=== PATIENT | male | born 1970 | race African-American/Black ===

== ENCOUNTER 2017-06-02 10:39 | Inpatient (IN) ==
[2017-06-02] MEDS ORDERED: SODIUM CHLORIDE 0.9% 1,000 ML IV STA (11:11)
[2017-06-02 11:43] LABS: Basophils # 0.1 10*3/uL (0.0-0.2); Basophils % 0.5 % (0.0-0.8); Eosinophils # 0.2 10*3/uL (0.0-0.87); Hematocrit 26.1 VOL% (42.0-52.0); Hemoglobin 8.4 GM/DL (14.0-18.0); Immature Granulocytes % 0.4 %; Immature Granulocytes Absolute 0.05 #; Lymphocytes % 17.2 % (21.2-54.2); Mean Corpuscular HGB Conc 32.2 GM/DL (32-36); Mean Corpuscular Hemoglobin 27 PG (27-34); Mean Corpuscular Volume 84.2 FL (87-102); Mean Platelet Volume 10.1 FL (9.6-12.0); Monocytes # 1.4 10*3/uL (0.11-0.8); Monocytes % 12.2 % (1.7-12.7); Neutrophils # 7.9 10*3/uL (1.4-7.4); Neutrophils % 67.7 % (38.7-73.9); Platelet Count 377 T/CUMM (130-400); Red Cell Distribution Width 13.6 % (9.3-17.3); White Blood Count 11.6 T/CUMM (4-12)
[2017-06-02 11:56] LABS: PT Patient Result 10.9 SECS
[2017-06-02 12:09] LABS: Alanine Aminotransferase 12 U/L (16-61); Albumin 1.8 G/DL (3.4-5.0); Alkaline Phosphatase 102 U/L (45-117); Aspartate Amino Transferase 12 U/L (0-37); Bilirubin,Total < 0.39 MG/DL (0.2-1.0); Blood Urea Nitrogen 21 MG/DL (7-18); Calcium 8.5 MG/DL (8.5-10.1); Glucose 50 MG/DL (74-106); Osmolality,Calculated 278.4 MOS/KG (273-304); Potassium 4.8 MMOL/L (3.5-5.1); Sodium 140 MMOL/L (136-145); Total Protein 8.6 G/DL (6.4-8.3)
[2017-06-02 12:32] LABS: Apearance,Urine CLEAR (Clear); Bacteria,Urine Occasional /HPF (Few); Bilirubin,Urine Negative (Negative); Blood, Urine Small mg/dL (Negative); Glucose,Urine (UA) Negative (Negative); Ketones,Urine Negative (Negative); Mucus,Urine Occasional /LPF (Occasional); Nitrite,Urine Negative (Negative); Protein,Urine Negative; RBC,Urine <1 /HPF (0-4); Squamous Epithelial Cell,Urine Occasional /HPF (0-10); Urine Color Straw (Yellow); Urine Specific Gravity 1.006 (1.001-1.035); Urine Urobilinogen < 2.0 EU/DL (0.2-1.0); WBC,Urine 1 /HPF (0-6)
[2017-06-02] MEDS ORDERED: DEXTROSE 50% 25 GM/50 ML SYRINGE IV ONE (14:39)
[2017-06-02] MEDS ORDERED: DEXTROSE 5% NACL 0.45% 1,000 ML IV SCH (15:00)
[2017-06-02] MEDS ORDERED: DEXTROSE 50% 25 GM/50 ML VIAL IV STA (15:42)
[2017-06-02] MEDS ORDERED: VANCOMYCIN INJ 1,000 MG in SODIUM CHLORIDE 0.9% 250 ML IV ONE (16:00)
[2017-06-02 16:23] LABS: Barbiturates Screen,Urine Negative (Negative); Benzodiazepines Screen,Urine Negative (Negative); Cannabinoid Screen,Urine Negative (Negative); Opiate Screen,Urine Negative (Negative); Phencyclidine Screen,Urine Negative (Negative)
[2017-06-02] MEDS ORDERED: ONDANSETRON 4 MG/2 ML VIAL IV PRN (16:52)
[2017-06-02] MEDS ORDERED: GLUCAGON 1 MG VIAL IM PRN (16:52)
[2017-06-02] MEDS ORDERED: ACETAMINOPHEN 325 MG TABLET PO PRN (16:52)
[2017-06-02] MEDS: FUROSEMIDE 40 MG/4 ML VIAL IV SCH (18:09)
[2017-06-02 18:19] LABS: Free T4 (Free Thyroxine) 0.85 NG/DL (0.76-1.46); Thyroid Stimulating Hormone 1.22 uIU/ml (0.358-3.74); Total Protein 8.1 G/DL (6.4-8.3)
[2017-06-02 18:58] LABS: HIV Antigen/Antibody Result Nonreactive (Nonreactive)
[2017-06-02] MEDS: VANCOMYCIN INJ 1,250 MG in SODIUM CHLORIDE 0.45% 250 ML IV SCH (19:22)
[2017-06-02] MEDS ORDERED: ENOXAPARIN 40 MG/0.4 ML SYRINGE SUBCUT SCH (21:00)
[2017-06-02] MEDS: ALBUMIN 25% 25 GM in PREMIX 1 EACH IV SCH (21:04)
[2017-06-03] MEDS ORDERED: INSULIN REGULAR 100 UNIT/ML IV ONE ×2 (03:10→18:52)
[2017-06-03] MEDS: ALBUMIN 25% 25 GM in PREMIX 1 EACH IV SCH ×3 (03:35→20:18)
[2017-06-03 05:08] LABS: Alanine Aminotransferase 11 U/L (16-61); Albumin 1.9 G/DL (3.4-5.0); Alkaline Phosphatase 91 U/L (45-117); Aspartate Amino Transferase 8 U/L (0-37); Bilirubin,Total < 0.39 MG/DL (0.2-1.0); Blood Urea Nitrogen 23 MG/DL (7-18); Calcium 7.6 MG/DL (8.5-10.1); Glucose 429 MG/DL (74-106); Osmolality,Calculated 296.7 MOS/KG (273-304); Potassium 4.8 MMOL/L (3.5-5.1); Sodium 138 MMOL/L (136-145); Total Protein 7.1 G/DL (6.4-8.3)
[2017-06-03 06:24] LABS: Basophils % 0.5 % (0.0-0.8); Eosinophils # 0.5 10*3/uL (0.0-0.87); Immature Granulocytes % 0.5 %; Immature Granulocytes Absolute 0.04 #; Lymphocytes # 2.1 10*3/uL (1.4-4.0); Lymphocytes % 24.6 % (21.2-54.2); Mean Corpuscular HGB Conc 33.2 GM/DL (32-36); Mean Corpuscular Hemoglobin 28 PG (27-34); Mean Corpuscular Volume 83.9 FL (87-102); Mean Platelet Volume 10.5 FL (9.6-12.0); Monocytes # 1.1 10*3/uL (0.11-0.8); Monocytes % 12.9 % (1.7-12.7); Neutrophils # 4.8 10*3/uL (1.4-7.4); Neutrophils % 55.5 % (38.7-73.9); Platelet Count 267 T/CUMM (130-400); Red Cell Distribution Width 13.7 % (9.3-17.3); White Blood Count 8.6 T/CUMM (4-12)
[2017-06-03 06:28] LABS: Hematocrit 19.3 VOL% (42.0-52.0); Hemoglobin 6.4 GM/DL (14.0-18.0)
[2017-06-03] MEDS ORDERED: SODIUM CHLORIDE 0.9% 1,000 ML IV PRN (06:34)
[2017-06-03] MEDS: FUROSEMIDE 40 MG/4 ML VIAL IV SCH ×2 (08:06→16:43)
[2017-06-03] MEDS: PANTOPRAZOLE 40 MG TABLET PO SCH (08:08)
[2017-06-03] MEDS: VANCOMYCIN INJ 1,250 MG in SODIUM CHLORIDE 0.45% 250 ML IV SCH ×2 (09:58→16:43)
[2017-06-03] MEDS ORDERED: cefTRIAXone 2,000 MG VIAL IV SCH (15:30)
[2017-06-03] MEDS: INSULIN GLARGINE 100 UNIT/ML SUBCUT SCH (16:42)
[2017-06-03] MEDS: amLODIPine 10 MG TABLET PO SCH (16:42)
[2017-06-03] MEDS: cefTRIAXone 2,000 MG in SYRINGE 1 EACH IV SCH (16:43)
[2017-06-03] MEDS: SODIUM CHLORIDE 0.9% 1,000 ML IV SCH (19:47)
[2017-06-03] MEDS: CARVEDILOL 6.25 MG TABLET PO SCH (20:25)
[2017-06-04 00:42] LABS: Hematocrit 23.7 VOL% (42.0-52.0)
[2017-06-04 00:45] LABS: Hemoglobin 7.9 GM/DL (14.0-18.0)
[2017-06-04] MEDS: SODIUM CHLORIDE 0.9% 1,000 ML IV SCH ×2 (04:13→17:47)
[2017-06-04] MEDS: ALBUMIN 25% 25 GM in PREMIX 1 EACH IV SCH (09:01)
[2017-06-04] MEDS: BISACODYL 5 MG TABLET PO SCH ×4 (09:02→15:49)
[2017-06-04] MEDS: FUROSEMIDE 40 MG/4 ML VIAL IV SCH (09:02)
[2017-06-04] MEDS: INSULIN GLARGINE 100 UNIT/ML SUBCUT SCH (09:03)
[2017-06-04 09:23] LABS: Hematocrit 29.6 VOL% (42.0-52.0); Hemoglobin 10.2 GM/DL (14.0-18.0)
[2017-06-04 09:24] LABS: Basophils # 0.1 10*3/uL (0.0-0.2); Basophils % 0.7 % (0.0-0.8); Eosinophils # 0.6 10*3/uL (0.0-0.87); Eosinophils % 7.5 % (0.00-10.9); Hematocrit 29.8 VOL% (42.0-52.0); Hemoglobin 9.9 GM/DL (14.0-18.0); Immature Granulocytes % 0.4 %; Immature Granulocytes Absolute 0.03 #; Lymphocytes # 2.5 10*3/uL (1.4-4.0); Lymphocytes % 29.5 % (21.2-54.2); Mean Corpuscular HGB Conc 33.2 GM/DL (32-36); Mean Corpuscular Hemoglobin 27 PG (27-34); Mean Corpuscular Volume 81.9 FL (87-102); Mean Platelet Volume 9.9 FL (9.6-12.0); Monocytes % 12.2 % (1.7-12.7); Neutrophils # 4.3 10*3/uL (1.4-7.4); Neutrophils % 49.7 % (38.7-73.9); Platelet Count 309 T/CUMM (130-400); Red Blood Count 3.64 MC/CUMM (3.8-5.5); Red Cell Distribution Width 14.2 % (9.3-17.3); White Blood Count 8.6 T/CUMM (4-12)
[2017-06-04 09:59] LABS: Albumin 2.7 G/DL (3.4-5.0); Bilirubin,Total 0.6 MG/DL (0.2-1.0); Calcium 8.4 MG/DL (8.5-10.1); Osmolality,Calculated 280.4 MOS/KG (273-304); Potassium 4.3 MMOL/L (3.5-5.1); Total Protein 8.3 G/DL (6.4-8.3)
[2017-06-04] MEDS: VANCOMYCIN INJ 1,250 MG in SODIUM CHLORIDE 0.45% 250 ML IV SCH ×2 (10:00→21:48)
[2017-06-04 10:10] LABS: % Iron Saturation 23.3 % (18-50)
[2017-06-04 10:21] LABS: Folate 3.5 NG/ML (5.4-24.0)
[2017-06-04] MEDS: CARVEDILOL 6.25 MG TABLET PO SCH (11:48)
[2017-06-04] MEDS: amLODIPine 10 MG TABLET PO SCH (11:48)
[2017-06-04] MEDS: PANTOPRAZOLE 40 MG TABLET PO SCH (11:49)
[2017-06-04] MEDS ORDERED: INSULIN GLARGINE 100 UNIT/ML SUBCUT SCH (13:47)
[2017-06-04] MEDS ORDERED: CYANOCOBALAMIN 1000 MCG/1 ML VIAL SUBCUT SCH (14:00)
[2017-06-04] MEDS: cefTRIAXone 2,000 MG in SYRINGE 1 EACH IV SCH (15:48)
[2017-06-04] MEDS ORDERED: POLYETHYLENE GLYCOL POWDER 255 GM BOTTLE PO ONE (18:00)
[2017-06-04 20:41] LABS: Hemoglobin 10.2 GM/DL (14.0-18.0)
[2017-06-04] MEDS ORDERED: MAGNESIUM CITRATE 300 ML BOTTLE PO ONE (21:00)
[2017-06-04] MEDS: FOLIC ACID 1 MG TABLET PO SCH (21:47)
[2017-06-04] MEDS: CARVEDILOL 25 MG TABLET PO SCH (21:47)
[2017-06-04] MEDS: DEXTROSE 50% 25 GM/50 ML VIAL IV PRN (23:04)
[2017-06-05] MEDS: BISACODYL 5 MG TABLET PO SCH (00:10)
[2017-06-05] MEDS: DEXTROSE 50% 25 GM/50 ML VIAL IV PRN ×2 (01:29→03:49)
[2017-06-05] MEDS ORDERED: DEXTROSE 10% 1,000 ML IV SCH (02:30)
[2017-06-05] MEDS ORDERED: DEXTROSE 10% 500 ML IV SCH (03:30)
[2017-06-05 04:06] LABS: Basophils # 0.1 10*3/uL (0.0-0.2); Basophils % 0.7 % (0.0-0.8); Eosinophils # 0.5 10*3/uL (0.0-0.87); Eosinophils % 6.4 % (0.00-10.9); Hematocrit 30.4 VOL% (42.0-52.0); Hemoglobin 10.3 GM/DL (14.0-18.0); Immature Granulocytes % 0.4 %; Immature Granulocytes Absolute 0.03 #; Lymphocytes # 2.1 10*3/uL (1.4-4.0); Lymphocytes % 25.8 % (21.2-54.2); Mean Corpuscular HGB Conc 33.9 GM/DL (32-36); Mean Corpuscular Hemoglobin 28 PG (27-34); Mean Corpuscular Volume 81.7 FL (87-102); Mean Platelet Volume 9.5 FL (9.6-12.0); Monocytes % 12.1 % (1.7-12.7); Neutrophils # 4.5 10*3/uL (1.4-7.4); Neutrophils % 54.6 % (38.7-73.9); Platelet Count 302 T/CUMM (130-400); Red Blood Count 3.72 MC/CUMM (3.8-5.5); White Blood Count 8.3 T/CUMM (4-12)
[2017-06-05 04:35] LABS: Albumin 2.5 G/DL (3.4-5.0); Bilirubin,Total 0.9 MG/DL (0.2-1.0); Calcium 8.5 MG/DL (8.5-10.1); Osmolality,Calculated 273.5 MOS/KG (273-304); Potassium 3.8 MMOL/L (3.5-5.1); Total Protein 8.3 G/DL (6.4-8.3)
[2017-06-05] MEDS ORDERED: PHENYLEPHRINE 1 MG/10 ML SYRINGE IV ONE (07:32)
[2017-06-05] MEDS ORDERED: LIDOCAINE 1% 5 ML VIAL ONE (07:32)
[2017-06-05] MEDS ORDERED: PROPOFOL 200 MG/20 ML VIAL IV ONE (07:32)
[2017-06-05 07:51] LABS: Albumin (SPE) Rel % 26.1 %; Alpha 1 (SPE) 0.4 G/DL (0.1-0.4); Alpha 2 (SPE) Rel % 13.1 %; Beta (SPE) 1.3 G/DL (0.5-1.1); Total Protein (Chem) 8.1 G/DL (6.4-8.3)
[2017-06-05 07:52] LABS: Beta (SPE) Rel % 15.6 %; Gamma (SPE) 3.3 G/DL (0.7-1.7); Gamma (SPE) Rel % 40.2 %
[2017-06-05 07:56] LABS: Albumin (SPE) 2.1 G/DL (3.2-5.3)
[2017-06-05] MEDS: CARVEDILOL 25 MG TABLET PO SCH ×3 (08:30→21:55)
[2017-06-05] MEDS: FOLIC ACID 1 MG TABLET PO SCH ×3 (08:31→21:55)
[2017-06-05] MEDS: FUROSEMIDE 40 MG/4 ML VIAL IV SCH ×2 (08:32→09:23)
[2017-06-05] MEDS: amLODIPine 10 MG TABLET PO SCH ×2 (08:33→09:22)
[2017-06-05] MEDS: PANTOPRAZOLE 40 MG TABLET PO SCH ×2 (08:33→09:22)
[2017-06-05] MEDS: VANCOMYCIN INJ 1,250 MG in SODIUM CHLORIDE 0.45% 250 ML IV SCH (08:33)
[2017-06-05 09:16] LABS: Hematocrit 29.4 VOL% (42.0-52.0); Hemoglobin 9.9 GM/DL (14.0-18.0)
[2017-06-05] MEDS: cefTRIAXone 2,000 MG in SYRINGE 1 EACH IV SCH (16:44)
[2017-06-05] MEDS: INSULIN LISPRO 100 UNIT/ML SUBCUT SCH (18:23)
[2017-06-05 19:55] LABS: Hematocrit 31.6 VOL% (42.0-52.0); Hemoglobin 10.6 GM/DL (14.0-18.0)
[2017-06-06 05:25] LABS: Basophils % 0.4 % (0.0-0.8); Eosinophils # 0.5 10*3/uL (0.0-0.87); Eosinophils % 5.5 % (0.00-10.9); Hematocrit 28.3 VOL% (42.0-52.0); Hemoglobin 9.3 GM/DL (14.0-18.0); Immature Granulocytes % 0.3 %; Immature Granulocytes Absolute 0.03 #; Lymphocytes # 2.4 10*3/uL (1.4-4.0); Lymphocytes % 26.7 % (21.2-54.2); Mean Corpuscular HGB Conc 32.9 GM/DL (32-36); Mean Corpuscular Hemoglobin 27 PG (27-34); Mean Corpuscular Volume 82.3 FL (87-102); Mean Platelet Volume 9.6 FL (9.6-12.0); Monocytes # 1.1 10*3/uL (0.11-0.8); Monocytes % 11.6 % (1.7-12.7); Neutrophils % 55.5 % (38.7-73.9); Platelet Count 283 T/CUMM (130-400); Red Blood Count 3.44 MC/CUMM (3.8-5.5); Red Cell Distribution Width 14.1 % (9.3-17.3); White Blood Count 9.1 T/CUMM (4-12)
[2017-06-06 05:58] LABS: Albumin 2.2 G/DL (3.4-5.0); Bilirubin,Total 0.4 MG/DL (0.2-1.0); Calcium 8.3 MG/DL (8.5-10.1); Osmolality,Calculated 285.1 MOS/KG (273-304); Potassium 4.3 MMOL/L (3.5-5.1); Total Protein 7.4 G/DL (6.4-8.3)
[2017-06-06 06:47] LABS: Immuno Free Light Chain Kappa 25.61 MG/DL (0.33-1.94); Immuno Free Light Chain Lambda 10.01 MG/DL (0.57-2.63); Immuno Free Light Chain Ratio 2.56 MG/DL (0.26-1.65)
[2017-06-06] MEDS: INSULIN LISPRO 100 UNIT/ML SUBCUT SCH ×2 (08:18→16:53)
[2017-06-06] MEDS: amLODIPine 10 MG TABLET PO SCH (09:53)
[2017-06-06] MEDS: FUROSEMIDE 40 MG/4 ML VIAL IV SCH (09:53)
[2017-06-06] MEDS: CARVEDILOL 25 MG TABLET PO SCH ×2 (09:53→21:02)
[2017-06-06] MEDS: PANTOPRAZOLE 40 MG TABLET PO SCH (09:53)
[2017-06-06] MEDS: FOLIC ACID 1 MG TABLET PO SCH ×2 (09:53→21:02)
[2017-06-06] MEDS: cefTRIAXone 2,000 MG in SYRINGE 1 EACH IV SCH (15:07)
[2017-06-06] MEDS ORDERED: VANCOMYCIN INJ 1,250 MG in SODIUM CHLORIDE 0.45% 250 ML IV ONE (21:00)
[2017-06-07 06:24] LABS: Basophils # 0.1 10*3/uL (0.0-0.2); Basophils % 0.7 % (0.0-0.8); Eosinophils # 0.6 10*3/uL (0.0-0.87); Eosinophils % 7.2 % (0.00-10.9); Hematocrit 29.7 VOL% (42.0-52.0); Hemoglobin 9.8 GM/DL (14.0-18.0); Immature Granulocytes % 0.4 %; Immature Granulocytes Absolute 0.03 #; Lymphocytes # 2.5 10*3/uL (1.4-4.0); Lymphocytes % 29.7 % (21.2-54.2); Mean Corpuscular Hemoglobin 28 PG (27-34); Mean Corpuscular Volume 83.4 FL (87-102); Mean Platelet Volume 9.6 FL (9.6-12.0); Monocytes % 11.9 % (1.7-12.7); Neutrophils # 4.2 10*3/uL (1.4-7.4); Neutrophils % 50.1 % (38.7-73.9); Platelet Count 258 T/CUMM (130-400); Red Blood Count 3.56 MC/CUMM (3.8-5.5); Red Cell Distribution Width 13.8 % (9.3-17.3); White Blood Count 8.4 T/CUMM (4-12)
[2017-06-07] MEDS: PANTOPRAZOLE 40 MG TABLET PO SCH (09:36)
[2017-06-07] MEDS: amLODIPine 10 MG TABLET PO SCH (09:36)
[2017-06-07] MEDS: CARVEDILOL 25 MG TABLET PO SCH (09:36)
[2017-06-07] MEDS: FOLIC ACID 1 MG TABLET PO SCH (09:36)
[2017-06-07] MEDS: INSULIN LISPRO 100 UNIT/ML SUBCUT SCH (09:37)
[2017-06-07] MEDS: FUROSEMIDE 40 MG/4 ML VIAL IV SCH (09:37)
[2017-06-07 13:09] VITALS: BP 129/79
[2017-06-08 08:53] LABS: Hemoglobin A1 (Alkaline) 87.7 % (96.5-98.5); Hemoglobin A2 (Alkaline) 2.3 % (1.5-3.5)
== END 2017-06-07 16:00 | DRG 637 ==
LOC: EDBD → N.ED 10:39 → N.EDINP 14:34 → SUATTDRO 14:34 → N.5E 16:30
PROVIDERS: ADMIT Internal Medicine; ATTEND Internal Medicine
PROC: COLONBX (2017-06-05 07:35)

== ENCOUNTER 2019-12-27 20:39 | Inpatient (IN) ==
[2019-12-27] MEDS ORDERED: ONDANSETRON 4 MG/2 ML VIAL IV STA (21:20)
[2019-12-27] MEDS ORDERED: KETOROLAC 30 MG/1 ML VIAL IV STA (21:20)
[2019-12-27] MEDS ORDERED: SODIUM CHLORIDE 0.9% 1,000 ML IV STA ×3 (21:20→23:57)
[2019-12-27 22:17] LABS: Basophils # 0.1 10*3/uL (0.0-0.2); Basophils % 0.3 % (0.0-0.8); Eosinophils # 0.1 10*3/uL (0.0-0.87); Eosinophils % 0.2 % (0.00-10.9); Hematocrit 32.4 VOL% (42.0-52.0); Hemoglobin 9.7 GM/DL (14.0-18.0); Immature Granulocytes % 2.3 %; Immature Granulocytes Absolute 0.51 #; Lymphocytes # 3.2 10*3/uL (1.4-4.0); Lymphocytes % 14.6 % (21.2-54.2); Mean Corpuscular HGB Conc 29.9 GM/DL (32-36); Mean Corpuscular Volume 93.6 FL (87-102); Mean Platelet Volume 11.8 FL (9.6-12.0); Neutrophils % 73.6 % (38.7-73.9); Platelet Count 201 T/CUMM (130-400); Red Blood Count 3.46 MC/CUMM (3.8-5.5); White Blood Count 22.1 T/CUMM (4-12)
[2019-12-27 23:01] LABS: Band Neutrophils 1 % (0-10); Lymphocytes 15 % (20-55); Platelet Estimate Normal; Segmented Neutrophils 77 % (50-85); Total Cells Counted 100
[2019-12-27 23:03] LABS: Hypochromasia Slight; Microcytosis Slight; Polychromasia Slight
[2019-12-27 23:18] LABS: Albumin 3.7 G/DL (3.4-5.0); Calcium 8.7 MG/DL (8.5-10.1); Osmolality,Calculated 329.5 MOS/KG (273-304)
[2019-12-27] MEDS ORDERED: INSULIN REGULAR 100 UNIT/ML IV STA (23:22)
[2019-12-27 23:41] LABS: ABG Base Excess -27.2 MMOL/L (-2.5-2.5); ABG HCO3 2.5 MMOL/L (20-26); ABG Oxygen Saturation 97.9 % (95-100); ABG TCO2 2.9 MMOL/L (23-27)
[2019-12-27 23:45] LABS: ABG PCO2 11.1 MM HG (35-48); ABG PH 6.973 (7.35-7.45)
[2019-12-27] MEDS ORDERED: INSULIN REGULAR DRIP 100 ML IV PRN (23:54)
[2019-12-27] MEDS ORDERED: SODIUM BICARBONATE 50 MEQ/50 ML VIAL IV STA (23:57)
[2019-12-28 00:45] LABS: Apearance,Urine Slightly Hazy (Clear); Bilirubin,Urine Negative (Negative); Blood, Urine Moderate mg/dL (Negative); Glucose,Urine (UA) >=500 mg/dL (Negative); Ketones,Urine 5 mg/dL (Negative); Mucus,Urine Occasional /LPF (Occasional); Nitrite,Urine Negative (Negative); Protein,Urine Negative; RBC,Urine 8 /HPF (0-4); Squamous Epithelial Cell,Urine Occasional /HPF (0-10); Urine Color Yellow (Yellow); Urine Specific Gravity 1.015 (1.001-1.035); Urine Urobilinogen < 2.0 EU/DL (0.2-1.0); WBC,Urine 4 /HPF (0-6)
[2019-12-28] MEDS ORDERED: GLUCAGON 1 MG VIAL IM PRN ×3 (00:51→15:30)
[2019-12-28] MEDS ORDERED: DEXTROSE 50% 25 GM/50 ML SYRINGE IV PRN (00:51)
[2019-12-28 00:53] LABS: Barbiturates Screen,Urine Negative (Negative); Benzodiazepines Screen,Urine Negative (Negative); Cannabinoid Screen,Urine Negative (Negative); Opiate Screen,Urine Negative (Negative); Phencyclidine Screen,Urine Negative (Negative)
[2019-12-28] MEDS ORDERED: SODIUM PHOSPHATE IV PRN (00:53)
[2019-12-28] MEDS ORDERED: POTASSIUM CHLORIDE RIDER 10 MEQ in PREMIX 1 EACH IV PRN (00:53)
[2019-12-28] MEDS ORDERED: MAGNESIUM SULF RIDER 2 GM in PREMIX 1 EACH IV PRN (00:53)
[2019-12-28] MEDS ORDERED: SODIUM BICARB INJ 100 MEQ in STERILE WATER INJ 400 ML IV PRN (00:53)
[2019-12-28] MEDS ORDERED: MAGNESIUM SULF RIDER 4 GM in PREMIX 1 EACH IV PRN (00:53)
[2019-12-28] MEDS ORDERED: SODIUM CHLORIDE 0.9% IV PRN (00:53)
[2019-12-28] MEDS: INSULIN REGULAR DRIP 100 ML IV SCH ×2 (00:55→10:21)
[2019-12-28] MEDS ORDERED: SODIUM CHLORIDE 0.9% 1,000 ML IV STA (00:56)
[2019-12-28] MEDS ORDERED: INSULIN REGULAR DRIP 100 ML IV SCH (01:00)
[2019-12-28] MEDS ORDERED: SODIUM CHLORIDE 0.9% 1,000 ML IV SCH (02:00)
[2019-12-28 02:13] LABS: ABG Base Excess -24.2 MMOL/L (-2.5-2.5); ABG HCO3 7.8 MMOL/L (20-26); ABG Oxygen Saturation 98.1 % (95-100); ABG PCO2 23.3 MM HG (35-48); ABG TCO2 5.8 MMOL/L (23-27)
[2019-12-28 02:19] LABS: ABG PH 7.026 (7.35-7.45)
[2019-12-28 02:27] LABS: Calcium 7.4 MG/DL (8.5-10.1); Osmolality,Calculated 320.8 MOS/KG (273-304)
[2019-12-28 03:25] LABS: Calcium 7.7 MG/DL (8.5-10.1); Osmolality,Calculated 323.4 MOS/KG (273-304)
[2019-12-28 04:14] LABS: Basophils % 0.2 % (0.0-0.8); Eosinophils # 0.1 10*3/uL (0.0-0.87); Eosinophils % 0.5 % (0.00-10.9); Hematocrit 27.2 VOL% (42.0-52.0); Hemoglobin 8.7 GM/DL (14.0-18.0); Immature Granulocytes % 4.2 %; Immature Granulocytes Absolute 0.98 #; Lymphocytes # 4.2 10*3/uL (1.4-4.0); Lymphocytes % 18.3 % (21.2-54.2); Mean Corpuscular Volume 86.9 FL (87-102); Mean Platelet Volume 11.5 FL (9.6-12.0); Monocytes % 10.1 % (1.7-12.7); Neutrophils % 66.7 % (38.7-73.9); Platelet Count 157 T/CUMM (130-400); Red Blood Count 3.13 MC/CUMM (3.8-5.5); Red Cell Distribution Width 12.9 % (9.3-17.3); White Blood Count 23.2 T/CUMM (4-12)
[2019-12-28 04:17] LABS: ABG Base Excess -19.1 MMOL/L (-2.5-2.5); ABG HCO3 10.2 MMOL/L (20-26); ABG Oxygen Saturation 98.5 % (95-100); ABG PCO2 22.8 MM HG (35-48); ABG TCO2 7.9 MMOL/L (23-27)
[2019-12-28 04:19] LABS: ABG PH 7.169 (7.35-7.45)
[2019-12-28 05:11] LABS: Band Neutrophils 1 % (0-10); Lymphocytes 19 % (20-55); Platelet Estimate Normal; Segmented Neutrophils 75 % (50-85); Total Cells Counted 100
[2019-12-28 05:12] LABS: Hypochromasia 1+; Microcytosis 2+
[2019-12-28 06:11] LABS: ABG Base Excess -15.6 MMOL/L (-2.5-2.5); ABG HCO3 10.5 MMOL/L (20-26); ABG Oxygen Saturation 97.3 % (95-100); ABG PCO2 25.6 MM HG (35-48); ABG PH 7.231 (7.35-7.45); ABG PO2 107.7 MM HG (80-95); ABG TCO2 11.3 MMOL/L (23-27)
[2019-12-28] MEDS ORDERED: SODIUM CHLORIDE 0.45% 1,000 ML IV SCH (06:15)
[2019-12-28 06:22] LABS: Calcium 7.6 MG/DL (8.5-10.1); Osmolality,Calculated 311.4 MOS/KG (273-304)
[2019-12-28] MEDS: ONDANSETRON 4 MG/2 ML VIAL IV PRN ×2 (08:12→17:20)
[2019-12-28 09:54] LABS: Calcium 7.7 MG/DL (8.5-10.1); Osmolality,Calculated 304.3 MOS/KG (273-304)
[2019-12-28] MEDS: PANTOPRAZOLE 40 MG TABLET PO SCH (10:23)
[2019-12-28] MEDS: ENOXAPARIN 30 MG/0.3 ML SYRINGE SUBCUT SCH (10:24)
[2019-12-28] MEDS: SODIUM CHLORIDE 0.45% 1,000 ML IV SCH ×2 (10:45→15:57)
[2019-12-28] MEDS: SODIUM CHLOR 0.45% KCL 20 MEQ 20 MEQ/1,000 ML BAG IV SCH ×2 (10:53→15:15)
[2019-12-28] MEDS: DEXT 5% NACL 0.45% KCL 20 MEQ 20 MEQ/1,000 ML BAG IV SCH ×2 (11:18→15:15)
[2019-12-28] MEDS ORDERED: INSULIN GLARGINE 100 UNIT/ML SUBCUT SCH (13:16)
[2019-12-28] MEDS ORDERED: DEXTROSE 10% 250 ML BAG IV PRN (15:30)
[2019-12-28] MEDS: INSULIN REGULAR 100 UNIT/ML SUBCUT SCH ×2 (15:43→21:59)
[2019-12-28] MEDS: GABAPENTIN 300 MG CAPSULE PO SCH (15:57)
[2019-12-28] MEDS: DEXTROSE 10% 250 ML BAG IV PRN (17:12)
[2019-12-28] MEDS ORDERED: INSULIN REGULAR 100 UNIT/ML SUBCUT SCH (18:00)
[2019-12-28] MEDS: MEGESTROL 40 MG TABLET PO SCH (22:09)
[2019-12-29] MEDS: DEXTROSE 10% 250 ML BAG IV PRN (00:19)
[2019-12-29] MEDS: INSULIN REGULAR 100 UNIT/ML SUBCUT SCH ×6 (00:22→21:51)
[2019-12-29] MEDS: SODIUM CHLORIDE 0.45% 1,000 ML IV SCH (00:22)
[2019-12-29] MEDS: DEXTROSE 5% NACL 0.45% 1,000 ML IV SCH ×2 (04:22→12:52)
[2019-12-29] MEDS: INSULIN GLARGINE 100 UNIT/ML SUBCUT SCH ×2 (06:06→10:20)
[2019-12-29 06:10] LABS: Basophils % 0.2 % (0.0-0.8); Eosinophils # 0.1 10*3/uL (0.0-0.87); Eosinophils % 0.7 % (0.00-10.9); Hematocrit 25.4 VOL% (42.0-52.0); Hemoglobin 8.5 GM/DL (14.0-18.0); Immature Granulocytes % 0.7 %; Immature Granulocytes Absolute 0.09 #; Lymphocytes # 1.5 10*3/uL (1.4-4.0); Lymphocytes % 12.2 % (21.2-54.2); Mean Corpuscular HGB Conc 33.5 GM/DL (32-36); Mean Corpuscular Volume 84.7 FL (87-102); Mean Platelet Volume 12.3 FL (9.6-12.0); Monocytes % 8.1 % (1.7-12.7); Neutrophils % 78.1 % (38.7-73.9); Platelet Count 120 T/CUMM (130-400); White Blood Count 12.4 T/CUMM (4-12)
[2019-12-29 06:30] LABS: Calcium 7.7 MG/DL (8.5-10.1); Osmolality,Calculated 291.3 MOS/KG (273-304)
[2019-12-29] MEDS: PANTOPRAZOLE 40 MG TABLET PO SCH (10:20)
[2019-12-29] MEDS: ENOXAPARIN 30 MG/0.3 ML SYRINGE SUBCUT SCH (10:20)
[2019-12-29] MEDS: MEGESTROL 40 MG TABLET PO SCH (10:20)
[2019-12-29] MEDS: GABAPENTIN 300 MG CAPSULE PO SCH (10:20)
[2019-12-29 12:11] LABS: Platelet Estimate Adequate
[2019-12-29] MEDS: ONDANSETRON 4 MG/2 ML VIAL IV SCH ×3 (13:02→21:47)
[2019-12-29] MEDS ORDERED: LEVOFLOXACIN INJ 500 MG in PREMIX 1 EACH IV SCH (15:00)
[2019-12-29] MEDS: PANTOPRAZOLE 40 MG VIAL IV SCH ×2 (15:19→21:49)
[2019-12-29] MEDS: DOCUSATE SODIUM 100 MG CAPSULE PO SCH ×2 (15:19→21:47)
[2019-12-29] MEDS: POLYETHYLENE GLYCOL POWDER 17 GM PACK PO SCH ×2 (15:25→21:51)
[2019-12-30] MEDS: INSULIN REGULAR 100 UNIT/ML SUBCUT SCH ×7 (00:19→23:51)
[2019-12-30] MEDS: DEXTROSE 5% NACL 0.45% 1,000 ML IV SCH ×3 (00:20→17:55)
[2019-12-30] MEDS: ONDANSETRON 4 MG/2 ML VIAL IV SCH ×6 (02:01→21:18)
[2019-12-30] MEDS: DEXTROSE 10% 250 ML BAG IV PRN ×4 (04:19→22:03)
[2019-12-30 06:12] LABS: Basophils % 0.1 % (0.0-0.8); Eosinophils # 0.1 10*3/uL (0.0-0.87); Eosinophils % 1.2 % (0.00-10.9); Hematocrit 24.1 VOL% (42.0-52.0); Hemoglobin 8.3 GM/DL (14.0-18.0); Immature Granulocytes % 0.6 %; Immature Granulocytes Absolute 0.06 #; Lymphocytes # 1.5 10*3/uL (1.4-4.0); Lymphocytes % 15.4 % (21.2-54.2); Mean Corpuscular HGB Conc 34.4 GM/DL (32-36); Mean Corpuscular Volume 83.1 FL (87-102); Mean Platelet Volume 11.5 FL (9.6-12.0); Monocytes % 9.6 % (1.7-12.7); Neutrophils % 73.1 % (38.7-73.9); Platelet Count 132 T/CUMM (130-400); Red Cell Distribution Width 13.5 % (9.3-17.3); White Blood Count 9.7 T/CUMM (4-12)
[2019-12-30 06:27] LABS: Calcium 7.6 MG/DL (8.5-10.1); Osmolality,Calculated 284.3 MOS/KG (273-304)
[2019-12-30 06:35] LABS: Hypochromasia 1+; Microcytosis Slight; Ovalocytes Slight; Platelet Estimate Normal
[2019-12-30 06:42] LABS: Folate 5.8 NG/ML (5.4-24.0); Vitamin B12 545 PG/ML (211-911)
[2019-12-30 06:49] LABS: Parathyroid Hormone Intact 107.8 PG/ML (18.4-80.1)
[2019-12-30 07:13] LABS: Sedimentation Rate-Westergren 60 MM/HR (0-20)
[2019-12-30] MEDS: ENOXAPARIN 30 MG/0.3 ML SYRINGE SUBCUT SCH (08:56)
[2019-12-30] MEDS: DOCUSATE SODIUM 100 MG CAPSULE PO SCH ×2 (08:56→21:18)
[2019-12-30] MEDS: GABAPENTIN 300 MG CAPSULE PO SCH (08:56)
[2019-12-30] MEDS: POLYETHYLENE GLYCOL POWDER 17 GM PACK PO SCH ×2 (08:56→21:18)
[2019-12-30] MEDS ORDERED: INSULIN GLARGINE 100 UNIT/ML SUBCUT SCH ×2 (09:00)
[2019-12-30] MEDS: PANTOPRAZOLE 40 MG VIAL IV SCH ×2 (09:00→21:19)
[2019-12-30] MEDS: CHOLECALCIFEROL 1,000 UNIT TABLET PO SCH (10:25)
[2019-12-30 11:16] LABS: Hemoglobin A1 (Alkaline) 67.3 % (96.5-98.5); Hemoglobin A2 (Alkaline) 29.9 % (1.5-3.5)
[2019-12-30 11:17] LABS: Hemoglobin S (Alkaline) 2.8 %
[2019-12-30] MEDS: PROCHLORPERAZINE 10 MG TABLET PO SCH ×2 (14:14→21:19)
[2019-12-30] MEDS ORDERED: LEVOFLOXACIN INJ 500 MG in PREMIX 1 EACH IV SCH (17:00)
[2019-12-30] MEDS ORDERED: GLUCOSE GEL 15 GM TUBE PO PRN (22:16)
[2019-12-31] MEDS: ONDANSETRON 4 MG/2 ML VIAL IV SCH ×6 (01:12→20:46)
[2019-12-31] MEDS: DEXTROSE 5% NACL 0.45% 1,000 ML IV SCH (03:04)
[2019-12-31] MEDS: INSULIN REGULAR 100 UNIT/ML SUBCUT SCH ×5 (04:04→19:18)
[2019-12-31] MEDS: DEXTROSE 10% 250 ML BAG IV PRN ×2 (04:33→10:15)
[2019-12-31 05:42] LABS: Basophils % 0.2 % (0.0-0.8); Eosinophils # 0.3 10*3/uL (0.0-0.87); Eosinophils % 2.5 % (0.00-10.9); Immature Granulocytes % 0.4 %; Immature Granulocytes Absolute 0.04 #; Lymphocytes # 2.7 10*3/uL (1.4-4.0); Lymphocytes % 26.6 % (21.2-54.2); Mean Corpuscular HGB Conc 33.3 GM/DL (32-36); Mean Corpuscular Volume 84.2 FL (87-102); Mean Platelet Volume 11.1 FL (9.6-12.0); Monocytes % 10.4 % (1.7-12.7); Neutrophils % 59.9 % (38.7-73.9); Platelet Count 117 T/CUMM (130-400); Red Blood Count 2.85 MC/CUMM (3.8-5.5); Red Cell Distribution Width 13.5 % (9.3-17.3); White Blood Count 10.1 T/CUMM (4-12)
[2019-12-31 05:55] LABS: Calcium 7.9 MG/DL (8.5-10.1); Osmolality,Calculated 280.3 MOS/KG (273-304)
[2019-12-31 06:44] LABS: Hypochromasia 1+; Microcytosis 1+; Platelet Estimate Adequate
[2019-12-31] MEDS: INSULIN GLARGINE 100 UNIT/ML SUBCUT SCH (09:00)
[2019-12-31] MEDS: DEXTROSE 10% 500 ML IV SCH ×2 (13:27→23:20)
[2019-12-31] MEDS: POLYETHYLENE GLYCOL POWDER 17 GM PACK PO SCH ×2 (13:29→20:46)
[2019-12-31] MEDS: DOCUSATE SODIUM 100 MG CAPSULE PO SCH ×2 (13:30→20:46)
[2019-12-31] MEDS: CHOLECALCIFEROL 1,000 UNIT TABLET PO SCH (14:02)
[2019-12-31] MEDS: PROCHLORPERAZINE 10 MG TABLET PO SCH ×3 (14:02→20:45)
[2019-12-31] MEDS: PANTOPRAZOLE 40 MG VIAL IV SCH ×2 (14:03→20:46)
[2019-12-31] MEDS: ENOXAPARIN 40 MG/0.4 ML SYRINGE SUBCUT SCH (14:03)
[2019-12-31] MEDS: GABAPENTIN 300 MG CAPSULE PO SCH (14:03)
[2019-12-31] MEDS: METOCLOPRAMIDE 10 MG/2 ML VIAL IV SCH ×2 (14:06→16:54)
[2019-12-31] MEDS: cefTRIAXone 2,000 MG in SYRINGE 1 EACH IV SCH (14:08)
[2019-12-31] MEDS: AZITHROMYCIN INJ 500 MG in SODIUM CHLORIDE 0.9% 250 ML IV SCH (14:15)
[2020-01-01] MEDS: METOCLOPRAMIDE 10 MG/2 ML VIAL IV SCH ×4 (00:29→17:12)
[2020-01-01] MEDS: ONDANSETRON 4 MG/2 ML VIAL IV SCH ×6 (00:29→21:19)
[2020-01-01] MEDS: INSULIN REGULAR 100 UNIT/ML SUBCUT SCH ×6 (00:33→20:21)
[2020-01-01] MEDS: DEXTROSE 5% NACL 0.45% 1,000 ML IV SCH ×2 (04:54→04:55)
[2020-01-01 05:36] LABS: Basophils % 0.2 % (0.0-0.8); Eosinophils # 0.3 10*3/uL (0.0-0.87); Eosinophils % 3.8 % (0.00-10.9); Hematocrit 22.5 VOL% (42.0-52.0); Hemoglobin 7.5 GM/DL (14.0-18.0); Immature Granulocytes % 0.1 %; Immature Granulocytes Absolute 0.01 #; Lymphocytes # 2.3 10*3/uL (1.4-4.0); Lymphocytes % 25.6 % (21.2-54.2); Mean Corpuscular HGB Conc 33.3 GM/DL (32-36); Mean Corpuscular Volume 83.3 FL (87-102); Mean Platelet Volume 11.9 FL (9.6-12.0); Monocytes % 12.5 % (1.7-12.7); Neutrophils % 57.8 % (38.7-73.9); Platelet Count 107 T/CUMM (130-400); Red Cell Distribution Width 13.3 % (9.3-17.3); White Blood Count 8.8 T/CUMM (4-12)
[2020-01-01 05:54] LABS: Calcium 7.9 MG/DL (8.5-10.1); Osmolality,Calculated 275.7 MOS/KG (273-304)
[2020-01-01 06:13] LABS: Hypochromasia 2+; Microcytosis 1+; Platelet Estimate Decreased
[2020-01-01] MEDS: PANTOPRAZOLE 40 MG VIAL IV SCH ×2 (09:37→21:19)
[2020-01-01] MEDS: GABAPENTIN 300 MG CAPSULE PO SCH (09:37)
[2020-01-01] MEDS: PROCHLORPERAZINE 10 MG TABLET PO SCH ×3 (09:37→21:20)
[2020-01-01] MEDS: DOCUSATE SODIUM 100 MG CAPSULE PO SCH ×2 (09:37→21:20)
[2020-01-01] MEDS: CHOLECALCIFEROL 1,000 UNIT TABLET PO SCH (09:37)
[2020-01-01] MEDS: ENOXAPARIN 40 MG/0.4 ML SYRINGE SUBCUT SCH (09:39)
[2020-01-01] MEDS: INSULIN GLARGINE 100 UNIT/ML SUBCUT SCH (09:39)
[2020-01-01] MEDS: POLYETHYLENE GLYCOL POWDER 17 GM PACK PO SCH ×2 (09:40→21:20)
[2020-01-01] MEDS: DEXTROSE 10% 500 ML IV SCH ×2 (09:48→18:30)
[2020-01-01] MEDS: cefTRIAXone 2,000 MG in SYRINGE 1 EACH IV SCH (12:32)
[2020-01-01] MEDS: AZITHROMYCIN INJ 500 MG in SODIUM CHLORIDE 0.9% 250 ML IV SCH (12:32)
[2020-01-01] MEDS ORDERED: SODIUM CHLORIDE 0.9% 1,000 ML IV PRN (12:57)
[2020-01-01] MEDS: amLODIPine 10 MG TABLET PO SCH (13:59)
[2020-01-02] MEDS: INSULIN REGULAR 100 UNIT/ML SUBCUT SCH ×6 (00:03→20:37)
[2020-01-02] MEDS: METOCLOPRAMIDE 10 MG/2 ML VIAL IV SCH ×2 (00:04→06:08)
[2020-01-02] MEDS: ONDANSETRON 4 MG/2 ML VIAL IV SCH ×6 (00:04→20:37)
[2020-01-02] MEDS: DEXTROSE 10% 500 ML IV SCH ×3 (02:19→17:08)
[2020-01-02 05:01] LABS: Basophils % 0.3 % (0.0-0.8); Eosinophils # 0.3 10*3/uL (0.0-0.87); Eosinophils % 4.3 % (0.00-10.9); Hematocrit 25.1 VOL% (42.0-52.0); Hemoglobin 8.5 GM/DL (14.0-18.0); Immature Granulocytes % 0.3 %; Immature Granulocytes Absolute 0.02 #; Lymphocytes # 2.4 10*3/uL (1.4-4.0); Lymphocytes % 31.8 % (21.2-54.2); Mean Corpuscular HGB Conc 33.9 GM/DL (32-36); Mean Corpuscular Volume 84.5 FL (87-102); Monocytes % 12.9 % (1.7-12.7); Neutrophils % 50.4 % (38.7-73.9); Platelet Count 149 T/CUMM (130-400); Red Blood Count 2.97 MC/CUMM (3.8-5.5); Red Cell Distribution Width 13.5 % (9.3-17.3); White Blood Count 7.5 T/CUMM (4-12)
[2020-01-02 05:32] LABS: Osmolality,Calculated 273.2 MOS/KG (273-304)
[2020-01-02] MEDS: LACTATED RINGERS 1,000 ML IV SCH (07:30)
[2020-01-02] MEDS ORDERED: LIDOCAINE 2% 5 ML VIAL ONE (09:00)
[2020-01-02] MEDS ORDERED: propofoL 200 MG/20 ML VIAL IV ONE (09:00)
[2020-01-02] MEDS: PROCHLORPERAZINE 10 MG TABLET PO SCH ×3 (10:57→20:36)
[2020-01-02] MEDS: DOCUSATE SODIUM 100 MG CAPSULE PO SCH ×2 (10:57→20:38)
[2020-01-02] MEDS: INSULIN GLARGINE 100 UNIT/ML SUBCUT SCH (10:58)
[2020-01-02] MEDS: CHOLECALCIFEROL 1,000 UNIT TABLET PO SCH (10:58)
[2020-01-02] MEDS: GABAPENTIN 300 MG CAPSULE PO SCH (10:58)
[2020-01-02] MEDS: POLYETHYLENE GLYCOL POWDER 17 GM PACK PO SCH ×2 (10:58→20:38)
[2020-01-02] MEDS: PANTOPRAZOLE 40 MG TABLET PO SCH ×2 (10:58→20:36)
[2020-01-02] MEDS: amLODIPine 10 MG TABLET PO SCH (10:58)
[2020-01-02] MEDS: METOCLOPRAMIDE 10 MG/10 ML UDCUP PO SCH ×3 (10:59→20:36)
[2020-01-02] MEDS: cefTRIAXone 2,000 MG in SYRINGE 1 EACH IV SCH (11:56)
[2020-01-02] MEDS: AZITHROMYCIN INJ 500 MG in SODIUM CHLORIDE 0.9% 250 ML IV SCH (12:30)
[2020-01-02] MEDS: CYPROHEPTADINE 4 MG TABLET PO SCH ×2 (14:20→20:36)
[2020-01-03] MEDS: ONDANSETRON 4 MG/2 ML VIAL IV SCH ×6 (00:12→21:03)
[2020-01-03] MEDS: INSULIN REGULAR 100 UNIT/ML SUBCUT SCH ×3 (00:25→10:10)
[2020-01-03] MEDS: DEXTROSE 10% 500 ML IV SCH (03:00)
[2020-01-03 06:27] LABS: Basophils % 0.4 % (0.0-0.8); Eosinophils # 0.2 10*3/uL (0.0-0.87); Eosinophils % 4.5 % (0.00-10.9); Hematocrit 23.8 VOL% (42.0-52.0); Immature Granulocytes % 0.8 %; Immature Granulocytes Absolute 0.04 #; Lymphocytes # 1.7 10*3/uL (1.4-4.0); Lymphocytes % 32.5 % (21.2-54.2); Mean Corpuscular HGB Conc 33.6 GM/DL (32-36); Mean Corpuscular Volume 85.6 FL (87-102); Mean Platelet Volume 10.4 FL (9.6-12.0); Monocytes % 13.8 % (1.7-12.7); Platelet Count 178 T/CUMM (130-400); Red Blood Count 2.78 MC/CUMM (3.8-5.5); Red Cell Distribution Width 13.7 % (9.3-17.3); White Blood Count 5.3 T/CUMM (4-12)
[2020-01-03 06:47] LABS: Calcium 8.1 MG/DL (8.5-10.1); Osmolality,Calculated 284.4 MOS/KG (273-304)
[2020-01-03] MEDS ORDERED: SODIUM CHLORIDE 0.9% 1,000 ML IV PRN (07:25)
[2020-01-03] MEDS: GABAPENTIN 300 MG CAPSULE PO SCH (08:12)
[2020-01-03] MEDS: CYPROHEPTADINE 4 MG TABLET PO SCH ×3 (08:12→21:03)
[2020-01-03] MEDS: DOCUSATE SODIUM 100 MG CAPSULE PO SCH ×2 (08:12→21:04)
[2020-01-03] MEDS: METOCLOPRAMIDE 10 MG/10 ML UDCUP PO SCH ×4 (08:12→21:03)
[2020-01-03] MEDS: POLYETHYLENE GLYCOL POWDER 17 GM PACK PO SCH ×2 (08:12→21:04)
[2020-01-03] MEDS: PROCHLORPERAZINE 10 MG TABLET PO SCH ×3 (08:12→21:03)
[2020-01-03] MEDS: PANTOPRAZOLE 40 MG TABLET PO SCH ×2 (08:12→21:03)
[2020-01-03] MEDS: amLODIPine 10 MG TABLET PO SCH (08:12)
[2020-01-03] MEDS: CHOLECALCIFEROL 1,000 UNIT TABLET PO SCH (08:13)
[2020-01-03] MEDS: INSULIN GLARGINE 100 UNIT/ML SUBCUT SCH (10:10)
[2020-01-03] MEDS: IRON (CARBONYL)/VIT C/B12/FA TABLET PO SCH (12:21)
[2020-01-04] MEDS: ONDANSETRON 4 MG/2 ML VIAL IV SCH ×6 (01:07→21:17)
[2020-01-04 06:44] LABS: Basophils % 0.6 % (0.0-0.8); Eosinophils # 0.3 10*3/uL (0.0-0.87); Eosinophils % 4.8 % (0.00-10.9); Hematocrit 33.5 VOL% (42.0-52.0); Hemoglobin 10.9 GM/DL (14.0-18.0); Immature Granulocytes % 0.4 %; Immature Granulocytes Absolute 0.03 #; Lymphocytes # 2.3 10*3/uL (1.4-4.0); Lymphocytes % 32.5 % (21.2-54.2); Mean Corpuscular HGB Conc 32.5 GM/DL (32-36); Mean Corpuscular Volume 86.6 FL (87-102); Mean Platelet Volume 9.8 FL (9.6-12.0); Monocytes % 13.8 % (1.7-12.7); Neutrophils % 47.9 % (38.7-73.9); Platelet Count 207 T/CUMM (130-400); Red Blood Count 3.87 MC/CUMM (3.8-5.5); Red Cell Distribution Width 13.7 % (9.3-17.3)
[2020-01-04] MEDS: PROCHLORPERAZINE 10 MG TABLET PO SCH ×3 (10:08→21:17)
[2020-01-04] MEDS: CHOLECALCIFEROL 1,000 UNIT TABLET PO SCH (10:08)
[2020-01-04] MEDS: amLODIPine 10 MG TABLET PO SCH (10:08)
[2020-01-04] MEDS: CYPROHEPTADINE 4 MG TABLET PO SCH ×3 (10:08→21:17)
[2020-01-04] MEDS: IRON (CARBONYL)/VIT C/B12/FA TABLET PO SCH (10:08)
[2020-01-04] MEDS: PANTOPRAZOLE 40 MG TABLET PO SCH ×2 (10:08→21:17)
[2020-01-04] MEDS: GABAPENTIN 300 MG CAPSULE PO SCH (10:08)
[2020-01-04] MEDS: DOCUSATE SODIUM 100 MG CAPSULE PO SCH ×2 (10:08→21:18)
[2020-01-04] MEDS: METOCLOPRAMIDE 10 MG/10 ML UDCUP PO SCH ×4 (10:08→21:17)
[2020-01-04] MEDS: POLYETHYLENE GLYCOL POWDER 17 GM PACK PO SCH ×2 (10:09→21:18)
[2020-01-04] MEDS: INSULIN GLARGINE 100 UNIT/ML SUBCUT SCH (10:10)
[2020-01-04] MEDS: INSULIN REGULAR 100 UNIT/ML SUBCUT SCH ×3 (12:43→21:17)
[2020-01-04] MEDS ORDERED: INSULIN NPH 100 UNIT/ML SUBCUT ONE (12:57)
[2020-01-04] MEDS: LACTATED RINGERS 1,000 ML IV SCH (15:55)
[2020-01-04] MEDS ORDERED: INSULIN GLARGINE 100 UNIT/ML SUBCUT SCH (21:00)
[2020-01-04] MEDS: DEXTROSE 10% 250 ML BAG IV PRN (21:17)
[2020-01-05] MEDS: ONDANSETRON 4 MG/2 ML VIAL IV SCH ×3 (01:50→08:40)
[2020-01-05] MEDS: LACTATED RINGERS 1,000 ML IV SCH ×2 (02:18→08:03)
[2020-01-05] MEDS: INSULIN REGULAR 100 UNIT/ML SUBCUT SCH ×2 (07:35→11:38)
[2020-01-05] MEDS: CYPROHEPTADINE 4 MG TABLET PO SCH (08:39)
[2020-01-05] MEDS: POLYETHYLENE GLYCOL POWDER 17 GM PACK PO SCH ×2 (08:39→08:49)
[2020-01-05] MEDS: GABAPENTIN 300 MG CAPSULE PO SCH (08:39)
[2020-01-05] MEDS: METOCLOPRAMIDE 10 MG/10 ML UDCUP PO SCH ×2 (08:39→11:38)
[2020-01-05] MEDS: CHOLECALCIFEROL 1,000 UNIT TABLET PO SCH (08:40)
[2020-01-05] MEDS: PROCHLORPERAZINE 10 MG TABLET PO SCH (08:40)
[2020-01-05] MEDS: amLODIPine 10 MG TABLET PO SCH (08:40)
[2020-01-05] MEDS: DOCUSATE SODIUM 100 MG CAPSULE PO SCH (08:40)
[2020-01-05] MEDS: PANTOPRAZOLE 40 MG TABLET PO SCH (08:40)
[2020-01-05] MEDS: IRON (CARBONYL)/VIT C/B12/FA TABLET PO SCH (08:40)
[2020-01-05 08:45] LABS: Calcium 8.4 MG/DL (8.5-10.1); Osmolality,Calculated 280.3 MOS/KG (273-304)
[2020-01-05] MEDS ORDERED: ONDANSETRON 4 MG TABLET PO PRN (11:05)
[2020-01-05 11:47] VITALS: BP 119/68
[2020-01-06 16:36] LABS: GAD65 Ab Assay, S 442 nmol/L (<= 0.02)
== END 2020-01-05 12:52 | disposition home or self-care (01) | DRG 637 ==
LOC: N.ED 20:39 → SUATTDRO 12-28 00:51 → N.EDINP 12-28 00:51 → N.ICU 12-28 09:30 → N.3E 12-28 17:40 → N.ICU 12-28 17:52 → N.3E 12-28 18:59
PROVIDERS: ADMIT Internal Medicine; ATTEND Hospitalist

== ENCOUNTER 2020-02-08 19:16 | Inpatient (IN) ==
[2020-02-08] MEDS ORDERED: SODIUM CHLORIDE 0.9% 1,000 ML IV STA (20:10)
[2020-02-08] MEDS ORDERED: ONDANSETRON 4 MG/2 ML VIAL IV STA (20:10)
[2020-02-08 20:43] LABS: Basophils # 0.1 10*3/uL (0.0-0.2); Basophils % 0.3 % (0.0-0.8); Eosinophils # 0.2 10*3/uL (0.0-0.87); Eosinophils % 1.4 % (0.00-10.9); Hematocrit 32.4 VOL% (42.0-52.0); Immature Granulocytes % 0.5 %; Immature Granulocytes Absolute 0.09 #; Lymphocytes % 11.8 % (21.2-54.2); Mean Corpuscular Volume 82.7 FL (87-102); Monocytes % 10.2 % (1.7-12.7); Neutrophils % 75.8 % (38.7-73.9); Platelet Count 218 T/CUMM (130-400); Red Blood Count 3.92 MC/CUMM (3.8-5.5); Red Cell Distribution Width 13.1 % (9.3-17.3); White Blood Count 17.3 T/CUMM (4-12)
[2020-02-08] MEDS ORDERED: INSULIN REGULAR 100 UNIT/ML IV STA (21:00)
[2020-02-08 21:02] LABS: Albumin 3.6 G/DL (3.4-5.0); Bilirubin,Total 0.6 MG/DL (0.2-1.0); Calcium 8.8 MG/DL (8.5-10.1); Osmolality,Calculated 302.1 MOS/KG (273-304); Total Protein 7.8 G/DL (6.4-8.3)
[2020-02-08 21:27] LABS: Bilirubin,Urine Negative (Negative); Blood, Urine Small mg/dL (Negative); Glucose,Urine (UA) >=500 mg/dL (Negative); Ketones,Urine Negative (Negative); Nitrite,Urine Negative (Negative); Protein,Urine Negative; RBC,Urine 27 /HPF (0-4); Squamous Epithelial Cell,Urine Occasional /HPF (0-10); Urine Appearance CLOUDY (Clear); Urine Color Yellow (Yellow); Urine Specific Gravity 1.017 (1.001-1.035); Urine Urobilinogen < 2.0 EU/DL (0.2-1.0); WBC,Urine 395 /HPF (0-6)
[2020-02-08] MEDS ORDERED: cefTRIAXone 1,000 MG in SODIUM CHLORIDE 0.9% 100 ML IV STA (21:41)
[2020-02-08] MEDS ORDERED: DEXTROSE 50% 25 GM/50 ML VIAL IV PRN ×2 (22:19→22:20)
[2020-02-08] MEDS ORDERED: GLUCAGON 1 MG VIAL IM PRN ×2 (22:19→22:20)
[2020-02-08] MEDS ORDERED: SODIUM CHLORIDE 0.9% 1,000 ML IV ONE (22:19)
[2020-02-08] MEDS ORDERED: ALBUTEROL 2.5 MG/3 ML NEB RESP TX PRN (22:20)
[2020-02-08] MEDS ORDERED: guaiFENesin/DM ER 600-30 MG TABLET PO PRN (22:20)
[2020-02-08] MEDS ORDERED: diphenhydrAMINE CAP 25 MG CAPSULE PO PRN (22:20)
[2020-02-08] MEDS ORDERED: ZALEPLON 5 MG CAPSULE PO PRN (22:20)
[2020-02-08] MEDS ORDERED: ONDANSETRON 4 MG/2 ML VIAL IV PRN (22:20)
[2020-02-08] MEDS ORDERED: PROMETHAZINE 25 MG TABLET PO PRN (22:20)
[2020-02-08] MEDS ORDERED: ACETAMINOPHEN 325 MG TABLET PO PRN (22:20)
[2020-02-08] MEDS ORDERED: hydrALAZINE 20 MG/1 ML VIAL IV PRN (22:20)
[2020-02-08] MEDS ORDERED: NICOTINE 21 MG/24 HR PATCH TRANSDERM PRN (22:20)
[2020-02-08] MEDS ORDERED: VANCOMYCIN 1,000 MG VIAL ONE (22:27)
[2020-02-08] MEDS ORDERED: VANCOMYCIN INJ 1,000 MG in SODIUM CHLORIDE 0.9% 250 ML IV ONE (22:30)
[2020-02-09] MEDS: SODIUM CHLOR 0.9% KCL 40 MEQ 40 MEQ/1,000 ML BAG IV SCH ×3 (01:30→21:21)
[2020-02-09] MEDS: HEPARIN 5,000 UNIT/1 ML VIAL SUBCUT SCH ×3 (01:30→21:30)
[2020-02-09] MEDS: INSULIN LISPRO 100 UNIT/ML SUBCUT SCH ×5 (02:41→21:42)
[2020-02-09 04:45] LABS: Basophils % 0.1 % (0.0-0.8); Eosinophils # 0.3 10*3/uL (0.0-0.87); Eosinophils % 2.1 % (0.00-10.9); Hematocrit 27.9 VOL% (42.0-52.0); Hemoglobin 9.5 GM/DL (14.0-18.0); Immature Granulocytes % 0.5 %; Immature Granulocytes Absolute 0.07 #; Lymphocytes # 2.6 10*3/uL (1.4-4.0); Lymphocytes % 19.1 % (21.2-54.2); Mean Corpuscular HGB Conc 34.1 GM/DL (32-36); Mean Corpuscular Volume 81.3 FL (87-102); Mean Platelet Volume 10.8 FL (9.6-12.0); Monocytes % 8.9 % (1.7-12.7); Neutrophils % 69.3 % (38.7-73.9); Platelet Count 160 T/CUMM (130-400); Red Blood Count 3.43 MC/CUMM (3.8-5.5); Red Cell Distribution Width 13.2 % (9.3-17.3); White Blood Count 13.6 T/CUMM (4-12)
[2020-02-09 05:25] LABS: Calcium 8.1 MG/DL (8.5-10.1); Osmolality,Calculated 292.1 MOS/KG (273-304)
[2020-02-09] MEDS: cefTRIAXone 1,000 MG in SODIUM CHLORIDE 0.9% 100 ML IV SCH (10:08)
[2020-02-09] MEDS: CHOLECALCIFEROL 1,000 UNIT TABLET PO SCH (10:09)
[2020-02-09] MEDS: MEGESTROL 40 MG TABLET PO SCH ×2 (10:10→16:28)
[2020-02-09] MEDS: DOCUSATE SODIUM 100 MG CAPSULE PO SCH ×2 (10:10→20:34)
[2020-02-09] MEDS: PANTOPRAZOLE 40 MG TABLET PO SCH (10:10)
[2020-02-09] MEDS: GABAPENTIN 300 MG CAPSULE PO SCH (10:10)
[2020-02-09] MEDS: IRON (CARBONYL)/VIT C/B12/FA TABLET PO SCH (10:10)
[2020-02-09] MEDS ORDERED: INSULIN GLARGINE 30 UNIT SUBCUT SCH (17:00)
[2020-02-10] MEDS: INSULIN LISPRO 100 UNIT/ML SUBCUT SCH ×6 (00:19→21:09)
[2020-02-10 05:33] LABS: Basophils % 0.4 % (0.0-0.8); Eosinophils # 0.3 10*3/uL (0.0-0.87); Eosinophils % 4.5 % (0.00-10.9); Hemoglobin 8.7 GM/DL (14.0-18.0); Immature Granulocytes % 0.4 %; Immature Granulocytes Absolute 0.03 #; Lymphocytes # 2.3 10*3/uL (1.4-4.0); Lymphocytes % 30.4 % (21.2-54.2); Mean Corpuscular HGB Conc 32.2 GM/DL (32-36); Mean Corpuscular Volume 85.7 FL (87-102); Mean Platelet Volume 10.4 FL (9.6-12.0); Neutrophils % 52.3 % (38.7-73.9); Platelet Count 134 T/CUMM (130-400); Red Blood Count 3.15 MC/CUMM (3.8-5.5); Red Cell Distribution Width 13.7 % (9.3-17.3); White Blood Count 7.6 T/CUMM (4-12)
[2020-02-10 05:55] LABS: Hypochromasia 1+
[2020-02-10 05:56] LABS: Platelet Estimate Normal
[2020-02-10] MEDS: SODIUM CHLOR 0.9% KCL 40 MEQ 40 MEQ/1,000 ML BAG IV SCH ×2 (08:44→21:00)
[2020-02-10] MEDS: MEGESTROL 40 MG TABLET PO SCH ×3 (08:45→16:51)
[2020-02-10] MEDS: PANTOPRAZOLE 40 MG TABLET PO SCH (08:45)
[2020-02-10] MEDS: cefTRIAXone 1,000 MG in SODIUM CHLORIDE 0.9% 100 ML IV SCH (08:45)
[2020-02-10] MEDS: IRON (CARBONYL)/VIT C/B12/FA TABLET PO SCH (08:45)
[2020-02-10] MEDS: DOCUSATE SODIUM 100 MG CAPSULE PO SCH ×2 (08:45→20:59)
[2020-02-10] MEDS: CHOLECALCIFEROL 1,000 UNIT TABLET PO SCH (08:45)
[2020-02-10] MEDS: HEPARIN 5,000 UNIT/1 ML VIAL SUBCUT SCH ×2 (08:45→21:00)
[2020-02-10] MEDS: GABAPENTIN 300 MG CAPSULE PO SCH (08:45)
[2020-02-11] MEDS: INSULIN LISPRO 100 UNIT/ML SUBCUT SCH ×7 (00:02→23:49)
[2020-02-11 05:51] LABS: Basophils % 0.5 % (0.0-0.8); Eosinophils # 0.5 10*3/uL (0.0-0.87); Eosinophils % 6.5 % (0.00-10.9); Hemoglobin 9.7 GM/DL (14.0-18.0); Immature Granulocytes % 0.4 %; Immature Granulocytes Absolute 0.03 #; Lymphocytes # 1.8 10*3/uL (1.4-4.0); Mean Corpuscular HGB Conc 32.3 GM/DL (32-36); Mean Platelet Volume 11.7 FL (9.6-12.0); Monocytes % 10.7 % (1.7-12.7); Neutrophils % 56.9 % (38.7-73.9); Platelet Count 126 T/CUMM (130-400); Red Blood Count 3.49 MC/CUMM (3.8-5.5); Red Cell Distribution Width 14.1 % (9.3-17.3); White Blood Count 7.3 T/CUMM (4-12)
[2020-02-11 06:19] LABS: Calcium 8.5 MG/DL (8.5-10.1)
[2020-02-11 06:26] LABS: Hypochromasia 1+; Microcytosis 1+
[2020-02-11] MEDS ORDERED: INSULIN GLARGINE 100 UNIT/ML SUBCUT SCH (09:00)
[2020-02-11] MEDS: SODIUM CHLORIDE 0.45% 1,000 ML IV SCH ×2 (09:37→21:15)
[2020-02-11] MEDS: GABAPENTIN 300 MG CAPSULE PO SCH (09:38)
[2020-02-11] MEDS: PANTOPRAZOLE 40 MG TABLET PO SCH (09:38)
[2020-02-11] MEDS: MEGESTROL 40 MG TABLET PO SCH ×2 (09:38→18:14)
[2020-02-11] MEDS: CHOLECALCIFEROL 1,000 UNIT TABLET PO SCH (09:38)
[2020-02-11] MEDS: DOCUSATE SODIUM 100 MG CAPSULE PO SCH ×2 (09:38→20:57)
[2020-02-11] MEDS: IRON (CARBONYL)/VIT C/B12/FA TABLET PO SCH (09:38)
[2020-02-11] MEDS: cefTRIAXone 1,000 MG in SODIUM CHLORIDE 0.9% 100 ML IV SCH (09:39)
[2020-02-11] MEDS: HEPARIN 5,000 UNIT/1 ML VIAL SUBCUT SCH ×2 (09:39→20:56)
[2020-02-12] MEDS: INSULIN LISPRO 100 UNIT/ML SUBCUT SCH ×3 (04:37→12:07)
[2020-02-12 05:39] LABS: Basophils % 0.3 % (0.0-0.8); Eosinophils # 0.5 10*3/uL (0.0-0.87); Eosinophils % 6.4 % (0.00-10.9); Hematocrit 24.3 VOL% (42.0-52.0); Hemoglobin 7.8 GM/DL (14.0-18.0); Immature Granulocytes % 0.3 %; Immature Granulocytes Absolute 0.02 #; Lymphocytes # 2.3 10*3/uL (1.4-4.0); Lymphocytes % 32.5 % (21.2-54.2); Mean Corpuscular HGB Conc 32.1 GM/DL (32-36); Mean Corpuscular Volume 86.5 FL (87-102); Mean Platelet Volume 11.4 FL (9.6-12.0); Monocytes % 10.5 % (1.7-12.7); Platelet Count 110 T/CUMM (130-400); Red Blood Count 2.81 MC/CUMM (3.8-5.5); Red Cell Distribution Width 14.2 % (9.3-17.3); White Blood Count 7.2 T/CUMM (4-12)
[2020-02-12 05:59] LABS: Hypochromasia 1+; Microcytosis 1+
[2020-02-12 06:02] LABS: Ovalocytes Few; Platelet Estimate Decreased
[2020-02-12 06:07] LABS: Calcium 8.1 MG/DL (8.5-10.1); Osmolality,Calculated 291.1 MOS/KG (273-304)
[2020-02-12] MEDS: SODIUM CHLORIDE 0.45% 1,000 ML IV SCH (07:27)
[2020-02-12] MEDS ORDERED: INSULIN GLARGINE 100 UNIT/ML SUBCUT SCH ×2 (08:24→21:00)
[2020-02-12] MEDS: PANTOPRAZOLE 40 MG TABLET PO SCH (08:55)
[2020-02-12] MEDS: HEPARIN 5,000 UNIT/1 ML VIAL SUBCUT SCH (08:55)
[2020-02-12] MEDS: IRON (CARBONYL)/VIT C/B12/FA TABLET PO SCH (08:55)
[2020-02-12] MEDS: DOCUSATE SODIUM 100 MG CAPSULE PO SCH (08:56)
[2020-02-12] MEDS: CHOLECALCIFEROL 1,000 UNIT TABLET PO SCH (08:56)
[2020-02-12] MEDS: GABAPENTIN 300 MG CAPSULE PO SCH (08:56)
[2020-02-12] MEDS: MEGESTROL 40 MG TABLET PO SCH (08:56)
[2020-02-12] MEDS: cefTRIAXone 1,000 MG in SODIUM CHLORIDE 0.9% 100 ML IV SCH (09:07)
[2020-02-12 13:07] VITALS: BP 156/99
== END 2020-02-12 15:17 | disposition home or self-care (01) ==
LOC: N.ED 19:16 → SUATTDRO 22:20 → N.EDINP 22:20 → N.TELEN 02-09 00:29
PROVIDERS: ADMIT Internal Medicine; ATTEND Internal Medicine Geriatric Medicine

== ENCOUNTER 2020-03-05 14:49 | Inpatient (IN) ==
[2020-03-05] MEDS ORDERED: DIPH/TET/ACEL PERT BOOSTER VACCINE 0.5 ML VIAL IM ONE (15:11)
[2020-03-05] MEDS ORDERED: ONDANSETRON 4 MG/2 ML VIAL IV STA (15:12)
[2020-03-05] MEDS ORDERED: HYDROmorphone 2 MG/1 ML VIAL IV STA (15:12)
[2020-03-05] MEDS ORDERED: VANCOMYCIN INJ 1,000 MG in SODIUM CHLORIDE 0.9% 250 ML IV STA (15:12)
[2020-03-05 15:36] LABS: Basophils % 0.3 % (0.0-0.8); Eosinophils # 0.3 10*3/uL (0.0-0.87); Eosinophils % 2.1 % (0.00-10.9); Hematocrit 34.1 VOL% (42.0-52.0); Hemoglobin 11.2 GM/DL (14.0-18.0); Immature Granulocytes % 0.5 %; Immature Granulocytes Absolute 0.06 #; Lymphocytes # 1.1 10*3/uL (1.4-4.0); Lymphocytes % 8.7 % (21.2-54.2); Mean Corpuscular HGB Conc 32.8 GM/DL (32-36); Mean Corpuscular Volume 85.3 FL (87-102); Mean Platelet Volume 10.8 FL (9.6-12.0); Monocytes % 9.6 % (1.7-12.7); Neutrophils % 78.8 % (38.7-73.9); Platelet Count 149 T/CUMM (130-400); Red Cell Distribution Width 14.5 % (9.3-17.3); White Blood Count 13.1 T/CUMM (4-12)
[2020-03-05] MEDS ORDERED: VANCOMYCIN 1,000 MG VIAL ONE (15:36)
[2020-03-05] MEDS ORDERED: ACETAMINOPHEN 325 MG TABLET PO PRN (15:50)
[2020-03-05] MEDS ORDERED: HYDROmorphone 2 MG/1 ML VIAL IV PRN (15:50)
[2020-03-05] MEDS ORDERED: ONDANSETRON 4 MG/2 ML VIAL IV PRN (15:50)
[2020-03-05] MEDS ORDERED: GLUCAGON 1 MG VIAL IM PRN (15:53)
[2020-03-05] MEDS ORDERED: DEXTROSE 50% 25 GM/50 ML VIAL IV PRN (15:53)
[2020-03-05 15:57] LABS: Albumin 2.4 G/DL (3.4-5.0); Calcium 8.9 MG/DL (8.5-10.1); Osmolality,Calculated 289.5 MOS/KG (273-304); Total Protein 6.7 G/DL (6.4-8.3)
[2020-03-05] MEDS ORDERED: METOCLOPRAMIDE 10 MG/2 ML VIAL ONE (16:16)
[2020-03-05] MEDS ORDERED: METOCLOPRAMIDE 10 MG/2 ML VIAL IV STA (16:25)
[2020-03-05 16:35] LABS: Eosinophils 1 % (0-10); Lymphocytes 10 % (20-55); Macrocytosis 2+; Polychromasia 1+; Segmented Neutrophils 87 % (50-85); Total Cells Counted 100
[2020-03-05 16:36] LABS: Microcytosis 2+; Platelet Estimate Adequate; Spherocytes Few
[2020-03-05] MEDS ORDERED: ceFAZolin 1,000 MG in SYRINGE 1 EACH IV ONE (18:50)
[2020-03-05] MEDS: LACTATED RINGERS 1,000 ML IV SCH (18:51)
[2020-03-05] MEDS: INSULIN REGULAR 100 UNIT/ML SUBCUT SCH ×2 (18:51→22:45)
[2020-03-05] MEDS ORDERED: ceFAZolin 1,000 MG VIAL ONE (19:32)
[2020-03-05] MEDS ORDERED: SUGAMMADEX 200 MG/2 ML VIAL IV ONE (19:33)
[2020-03-05] MEDS ORDERED: LACTATED RINGERS 500 ML IV ONE (19:40)
[2020-03-05] MEDS ORDERED: LIDOCAINE 2% 5 ML VIAL ONE (20:02)
[2020-03-05] MEDS ORDERED: fentaNYL 100 MCG/2 ML VIAL ONE (20:02)
[2020-03-05] MEDS ORDERED: ETOMIDATE 40 MG/20 ML VIAL IV ONE (20:02)
[2020-03-05] MEDS ORDERED: ROCURONIUM 100 MG/10 ML VIAL IV ONE (20:02)
[2020-03-05] MEDS ORDERED: ONDANSETRON 4 MG/2 ML VIAL ONE (20:02)
[2020-03-05] MEDS ORDERED: SEVOFLURANE 1 UNIT/15 MINUTE INH ONE (20:02)
[2020-03-06] MEDS: LACTATED RINGERS 1,000 ML IV SCH ×4 (03:26→23:01)
[2020-03-06 05:43] LABS: Basophils # 0.1 10*3/uL (0.0-0.2); Basophils % 0.3 % (0.0-0.8); Eosinophils # 0.5 10*3/uL (0.0-0.87); Eosinophils % 2.4 % (0.00-10.9); Hematocrit 25.9 VOL% (42.0-52.0); Hemoglobin 8.4 GM/DL (14.0-18.0); Immature Granulocytes % 0.8 %; Immature Granulocytes Absolute 0.15 #; Lymphocytes # 1.7 10*3/uL (1.4-4.0); Lymphocytes % 8.8 % (21.2-54.2); Mean Corpuscular HGB Conc 32.4 GM/DL (32-36); Mean Platelet Volume 10.4 FL (9.6-12.0); Monocytes % 8.4 % (1.7-12.7); Neutrophils % 79.3 % (38.7-73.9); Platelet Count 173 T/CUMM (130-400); Red Blood Count 3.01 MC/CUMM (3.8-5.5); Red Cell Distribution Width 14.6 % (9.3-17.3); White Blood Count 18.7 T/CUMM (4-12)
[2020-03-06 06:29] LABS: Calcium 8.3 MG/DL (8.5-10.1); Osmolality,Calculated 289.3 MOS/KG (273-304)
[2020-03-06 06:30] LABS: Band Neutrophils 10 % (0-10); Eosinophils 2 % (0-10); Hypochromasia 1+; Lymphocytes 10 % (20-55); Microcytosis Slight; Segmented Neutrophils 72 % (50-85); Total Cells Counted 100
[2020-03-06 06:31] LABS: Platelet Estimate Adequate; Polychromasia Slight
[2020-03-06] MEDS: INSULIN REGULAR 100 UNIT/ML SUBCUT SCH ×4 (07:56→20:39)
[2020-03-06] MEDS: PIPERACILLIN/TAZOBACTAM 3,375 MG in SODIUM CHLORIDE 0.9% 100 ML IV SCH ×3 (07:56→16:46)
[2020-03-06] MEDS ORDERED: VANCOMYCIN INJ 1,000 MG in SODIUM CHLORIDE 0.9% 250 ML IV SCH (09:00)
[2020-03-06] MEDS: GABAPENTIN 300 MG CAPSULE PO SCH (09:03)
[2020-03-06] MEDS: ENOXAPARIN 40 MG/0.4 ML SYRINGE SUBCUT SCH (09:05)
[2020-03-06] MEDS: PANTOPRAZOLE 40 MG TABLET PO SCH (09:06)
[2020-03-06] MEDS: amLODIPine 10 MG TABLET PO SCH (09:06)
[2020-03-06] MEDS: BACITRACIN OINT 0.9 GM PACK TOP SCH (12:39)
[2020-03-06] MEDS: POLYETHYLENE GLYCOL POWDER 17 GM PACK PO SCH (20:39)
[2020-03-07] MEDS: PIPERACILLIN/TAZOBACTAM 3,375 MG in SODIUM CHLORIDE 0.9% 100 ML IV SCH ×3 (00:31→20:39)
[2020-03-07 04:46] LABS: Basophils # 0.1 10*3/uL (0.0-0.2); Basophils % 0.4 % (0.0-0.8); Eosinophils # 0.7 10*3/uL (0.0-0.87); Eosinophils % 4.2 % (0.00-10.9); Hematocrit 25.2 VOL% (42.0-52.0); Hemoglobin 8.1 GM/DL (14.0-18.0); Immature Granulocytes % 0.8 %; Immature Granulocytes Absolute 0.14 #; Lymphocytes # 2.2 10*3/uL (1.4-4.0); Lymphocytes % 12.7 % (21.2-54.2); Mean Corpuscular HGB Conc 32.1 GM/DL (32-36); Mean Corpuscular Volume 87.2 FL (87-102); Mean Platelet Volume 10.7 FL (9.6-12.0); Neutrophils % 71.9 % (38.7-73.9); Platelet Count 183 T/CUMM (130-400); Red Blood Count 2.89 MC/CUMM (3.8-5.5); Red Cell Distribution Width 14.6 % (9.3-17.3); White Blood Count 17.2 T/CUMM (4-12)
[2020-03-07 05:16] LABS: Calcium 8.6 MG/DL (8.5-10.1); Osmolality,Calculated 294.3 MOS/KG (273-304)
[2020-03-07 05:22] LABS: Band Neutrophils 2 % (0-10); Eosinophils 1 % (0-10); Hypochromasia 1+; Lymphocytes 6 % (20-55); Microcytosis Slight; Ovalocytes Slight; Platelet Estimate Adequate; Segmented Neutrophils 83 % (50-85); Total Cells Counted 100
[2020-03-07] MEDS: LACTATED RINGERS 1,000 ML IV SCH ×3 (05:53→16:55)
[2020-03-07] MEDS: POLYETHYLENE GLYCOL POWDER 17 GM PACK PO SCH ×2 (08:22→20:05)
[2020-03-07] MEDS: INSULIN REGULAR 100 UNIT/ML SUBCUT SCH ×4 (08:51→20:38)
[2020-03-07] MEDS: ENOXAPARIN 40 MG/0.4 ML SYRINGE SUBCUT SCH (08:51)
[2020-03-07] MEDS: BACITRACIN OINT 0.9 GM PACK TOP SCH (08:52)
[2020-03-07] MEDS: GABAPENTIN 300 MG CAPSULE PO SCH (08:52)
[2020-03-07] MEDS: FOLIC ACID 1 MG TABLET PO SCH (08:52)
[2020-03-07] MEDS: PANTOPRAZOLE 40 MG TABLET PO SCH (08:52)
[2020-03-07] MEDS: amLODIPine 10 MG TABLET PO SCH (08:52)
[2020-03-07] MEDS ORDERED: VANCOMYCIN INJ 1,000 MG in SODIUM CHLORIDE 0.9% 250 ML IV SCH (21:00)
[2020-03-08 04:16] LABS: Basophils % 0.3 % (0.0-0.8); Eosinophils # 0.5 10*3/uL (0.0-0.87); Eosinophils % 3.9 % (0.00-10.9); Hematocrit 21.6 VOL% (42.0-52.0); Hemoglobin 7.2 GM/DL (14.0-18.0); Immature Granulocytes % 0.8 %; Immature Granulocytes Absolute 0.09 #; Lymphocytes # 2.3 10*3/uL (1.4-4.0); Lymphocytes % 20.1 % (21.2-54.2); Mean Corpuscular HGB Conc 33.3 GM/DL (32-36); Mean Corpuscular Volume 85.7 FL (87-102); Mean Platelet Volume 10.9 FL (9.6-12.0); Monocytes % 9.5 % (1.7-12.7); Neutrophils % 65.4 % (38.7-73.9); Platelet Count 164 T/CUMM (130-400); Red Blood Count 2.52 MC/CUMM (3.8-5.5); Red Cell Distribution Width 14.7 % (9.3-17.3); White Blood Count 11.7 T/CUMM (4-12)
[2020-03-08 04:36] LABS: Calcium 8.5 MG/DL (8.5-10.1); Osmolality,Calculated 296.8 MOS/KG (273-304)
[2020-03-08] MEDS: LACTATED RINGERS 1,000 ML IV SCH ×3 (04:45→18:26)
[2020-03-08] MEDS: INSULIN REGULAR 100 UNIT/ML SUBCUT SCH ×4 (09:22→22:23)
[2020-03-08] MEDS: FOLIC ACID 1 MG TABLET PO SCH (09:22)
[2020-03-08] MEDS: PIPERACILLIN/TAZOBACTAM 3,375 MG in SODIUM CHLORIDE 0.9% 100 ML IV SCH ×2 (09:23→22:18)
[2020-03-08] MEDS: BACITRACIN OINT 0.9 GM PACK TOP SCH (09:23)
[2020-03-08] MEDS: GABAPENTIN 300 MG CAPSULE PO SCH (09:25)
[2020-03-08] MEDS: PANTOPRAZOLE 40 MG TABLET PO SCH (09:25)
[2020-03-08] MEDS: POLYETHYLENE GLYCOL POWDER 17 GM PACK PO SCH ×2 (09:25→22:18)
[2020-03-09 06:55] LABS: Basophils % 0.2 % (0.0-0.8); Eosinophils # 0.4 10*3/uL (0.0-0.87); Eosinophils % 4.2 % (0.00-10.9); Hematocrit 22.2 VOL% (42.0-52.0); Hemoglobin 7.1 GM/DL (14.0-18.0); Immature Granulocytes % 1.2 %; Immature Granulocytes Absolute 0.13 #; Lymphocytes # 2.5 10*3/uL (1.4-4.0); Lymphocytes % 23.9 % (21.2-54.2); Mean Corpuscular Volume 87.4 FL (87-102); Mean Platelet Volume 10.4 FL (9.6-12.0); Monocytes % 9.6 % (1.7-12.7); Neutrophils % 60.9 % (38.7-73.9); Platelet Count 175 T/CUMM (130-400); Red Blood Count 2.54 MC/CUMM (3.8-5.5); Red Cell Distribution Width 14.6 % (9.3-17.3); White Blood Count 10.4 T/CUMM (4-12)
[2020-03-09 07:15] LABS: Calcium 8.6 MG/DL (8.5-10.1); Osmolality,Calculated 303.7 MOS/KG (273-304)
[2020-03-09 07:39] LABS: Band Neutrophils 1 % (0-10); Eosinophils 3 % (0-10); Hypochromasia 2+; Lymphocytes 23 % (20-55); Microcytosis Slight; Platelet Estimate Adequate; Segmented Neutrophils 68 % (50-85); Total Cells Counted 100
[2020-03-09] MEDS: LACTATED RINGERS 1,000 ML IV SCH ×3 (08:11→19:41)
[2020-03-09] MEDS: INSULIN REGULAR 100 UNIT/ML SUBCUT SCH ×4 (11:20→21:58)
[2020-03-09] MEDS: ENOXAPARIN 30 MG/0.3 ML SYRINGE SUBCUT SCH (11:20)
[2020-03-09] MEDS: PANTOPRAZOLE 40 MG TABLET PO SCH (11:21)
[2020-03-09] MEDS: FOLIC ACID 1 MG TABLET PO SCH (11:21)
[2020-03-09] MEDS: BACITRACIN OINT 0.9 GM PACK TOP SCH (11:21)
[2020-03-09] MEDS: GABAPENTIN 300 MG CAPSULE PO SCH (11:21)
[2020-03-09] MEDS: PIPERACILLIN/TAZOBACTAM 3,375 MG in SODIUM CHLORIDE 0.9% 100 ML IV SCH (11:22)
[2020-03-09] MEDS: POLYETHYLENE GLYCOL POWDER 17 GM PACK PO SCH ×2 (11:22→21:00)
[2020-03-09] MEDS ORDERED: SODIUM CHLORIDE 0.9% 1,000 ML IV PRN (12:02)
[2020-03-10] MEDS: LACTATED RINGERS 1,000 ML IV SCH ×2 (01:00→02:15)
[2020-03-10] MEDS: PIPERACILLIN/TAZOBACTAM 3,375 MG in SODIUM CHLORIDE 0.9% 100 ML IV SCH ×2 (02:16→16:58)
[2020-03-10 06:59] LABS: Calcium 9.2 MG/DL (8.5-10.1); Osmolality,Calculated 305.4 MOS/KG (273-304)
[2020-03-10] MEDS: INSULIN REGULAR 100 UNIT/ML SUBCUT SCH ×5 (08:09→21:51)
[2020-03-10] MEDS ORDERED: LIDOCAINE 2% 5 ML VIAL ONE (09:00)
[2020-03-10] MEDS ORDERED: LABETALOL 100 MG/20 ML VIAL IV ONE (09:00)
[2020-03-10] MEDS ORDERED: propofoL 200 MG/20 ML VIAL IV ONE (09:00)
[2020-03-10] MEDS ORDERED: BISACODYL 5 MG TABLET PO ONE (12:00)
[2020-03-10] MEDS: SODIUM CHLORIDE 0.9% 1,000 ML IV SCH (12:35)
[2020-03-10] MEDS ORDERED: ceFAZolin 1,000 MG in SYRINGE 1 EACH IV ONE (12:59)
[2020-03-10] MEDS: ENOXAPARIN 30 MG/0.3 ML SYRINGE SUBCUT SCH (17:00)
[2020-03-10] MEDS: GABAPENTIN 300 MG CAPSULE PO SCH (17:01)
[2020-03-10] MEDS: amLODIPine 5 MG TABLET PO SCH (17:01)
[2020-03-10] MEDS: BACITRACIN OINT 0.9 GM PACK TOP SCH (17:01)
[2020-03-10] MEDS: PANTOPRAZOLE 40 MG TABLET PO SCH (17:01)
[2020-03-10] MEDS: FOLIC ACID 1 MG TABLET PO SCH (17:01)
[2020-03-10] MEDS: POLYETHYLENE GLYCOL POWDER 17 GM PACK PO SCH (17:02)
[2020-03-10] MEDS ORDERED: POLYETHYLENE GLYCOL POWDER 255 GM BOTTLE PO ONE (18:00)
[2020-03-10] MEDS ORDERED: MAGNESIUM CITRATE 300 ML BOTTLE PO ONE (21:00)
[2020-03-11] MEDS: PIPERACILLIN/TAZOBACTAM 3,375 MG in SODIUM CHLORIDE 0.9% 100 ML IV SCH ×2 (04:22→16:03)
[2020-03-11 05:49] LABS: Calcium 9.1 MG/DL (8.5-10.1); Osmolality,Calculated 300.4 MOS/KG (273-304)
[2020-03-11] MEDS ORDERED: BUPIVACAINE MPF 0.25% 30 ML VIAL ONE (06:28)
[2020-03-11] MEDS ORDERED: LIDOCAINE 1%/EPI INJ 20 ML VIAL ONE (06:28)
[2020-03-11] MEDS ORDERED: LIDOCAINE 1% 20 ML VIAL ONE (07:02)
[2020-03-11] MEDS ORDERED: ceFAZolin 1,000 MG VIAL ONE (07:25)
[2020-03-11] MEDS ORDERED: LIDOCAINE 2% 5 ML VIAL ONE ×2 (07:52→09:00)
[2020-03-11] MEDS ORDERED: propofoL 200 MG/20 ML VIAL IV ONE ×2 (07:52→09:00)
[2020-03-11] MEDS ORDERED: MIDAZOLAM 2 MG/2 ML VIAL ONE (07:52)
[2020-03-11] MEDS ORDERED: KETAMINE 500 MG/10 ML VIAL ONE (07:52)
[2020-03-11] MEDS ORDERED: fentaNYL 100 MCG/2 ML VIAL ONE (07:53)
[2020-03-11] MEDS ORDERED: SODIUM CHLORIDE 0.9% 100 ML IV ONE (07:53)
[2020-03-11] MEDS ORDERED: hydrALAZINE 20 MG/1 ML VIAL ONE (07:58)
[2020-03-11] MEDS ORDERED: hydrALAZINE 20 MG/1 ML VIAL IV ONE (08:03)
[2020-03-11] MEDS: SODIUM CHLORIDE 0.9% 1,000 ML IV SCH (09:31)
[2020-03-11] MEDS: LACTATED RINGERS 1,000 ML IV SCH ×2 (09:32→15:46)
[2020-03-11] MEDS: PANTOPRAZOLE 40 MG TABLET PO SCH (10:22)
[2020-03-11] MEDS: amLODIPine 5 MG TABLET PO SCH (10:22)
[2020-03-11] MEDS: FOLIC ACID 1 MG TABLET PO SCH (10:22)
[2020-03-11] MEDS: BACITRACIN OINT 0.9 GM PACK TOP SCH (10:23)
[2020-03-11] MEDS: GABAPENTIN 300 MG CAPSULE PO SCH (10:23)
[2020-03-11] MEDS: ENOXAPARIN 30 MG/0.3 ML SYRINGE SUBCUT SCH (10:26)
[2020-03-11] MEDS: POLYETHYLENE GLYCOL POWDER 17 GM PACK PO SCH ×2 (10:38→21:40)
[2020-03-11] MEDS: INSULIN REGULAR 100 UNIT/ML SUBCUT SCH ×4 (10:38→21:00)
[2020-03-12] MEDS: PIPERACILLIN/TAZOBACTAM 3,375 MG in SODIUM CHLORIDE 0.9% 100 ML IV SCH (03:59)
[2020-03-12 05:36] LABS: Basophils # 0.1 10*3/uL (0.0-0.2); Basophils % 0.4 % (0.0-0.8); Eosinophils # 0.5 10*3/uL (0.0-0.87); Hemoglobin 9.2 GM/DL (14.0-18.0); Immature Granulocytes % 1.3 %; Immature Granulocytes Absolute 0.18 #; Lymphocytes # 3.4 10*3/uL (1.4-4.0); Lymphocytes % 25.1 % (21.2-54.2); Mean Corpuscular HGB Conc 31.7 GM/DL (32-36); Mean Corpuscular Volume 89.2 FL (87-102); Mean Platelet Volume 9.8 FL (9.6-12.0); Monocytes % 8.6 % (1.7-12.7); Neutrophils % 60.6 % (38.7-73.9); Platelet Count 189 T/CUMM (130-400); Red Blood Count 3.25 MC/CUMM (3.8-5.5); Red Cell Distribution Width 14.8 % (9.3-17.3); White Blood Count 13.5 T/CUMM (4-12)
[2020-03-12 06:09] LABS: Calcium 8.9 MG/DL (8.5-10.1); Osmolality,Calculated 306.3 MOS/KG (273-304)
[2020-03-12] MEDS: POLYETHYLENE GLYCOL POWDER 17 GM PACK PO SCH ×3 (07:49→22:18)
[2020-03-12] MEDS: INSULIN REGULAR 100 UNIT/ML SUBCUT SCH ×4 (08:16→22:18)
[2020-03-12] MEDS: PANTOPRAZOLE 40 MG TABLET PO SCH (10:12)
[2020-03-12] MEDS: BACITRACIN OINT 0.9 GM PACK TOP SCH (10:12)
[2020-03-12] MEDS: GABAPENTIN 300 MG CAPSULE PO SCH (10:12)
[2020-03-12] MEDS: ENOXAPARIN 30 MG/0.3 ML SYRINGE SUBCUT SCH (10:12)
[2020-03-12] MEDS: amLODIPine 5 MG TABLET PO SCH (10:12)
[2020-03-12] MEDS: LACTATED RINGERS 1,000 ML IV SCH (10:17)
[2020-03-12] MEDS: SODIUM CHLORIDE 0.9% 1,000 ML IV SCH (10:17)
[2020-03-12] MEDS: FOLIC ACID 1 MG TABLET PO SCH (10:18)
[2020-03-13] MEDS: SODIUM CHLORIDE 0.9% 1,000 ML IV SCH (06:44)
[2020-03-13] MEDS: INSULIN REGULAR 100 UNIT/ML SUBCUT SCH ×2 (07:34→11:32)
[2020-03-13] MEDS: BACITRACIN OINT 0.9 GM PACK TOP SCH (09:07)
[2020-03-13] MEDS: FOLIC ACID 1 MG TABLET PO SCH (09:07)
[2020-03-13] MEDS: amLODIPine 5 MG TABLET PO SCH (09:07)
[2020-03-13] MEDS: PANTOPRAZOLE 40 MG TABLET PO SCH (09:07)
[2020-03-13] MEDS: GABAPENTIN 300 MG CAPSULE PO SCH (09:07)
[2020-03-13] MEDS: ENOXAPARIN 30 MG/0.3 ML SYRINGE SUBCUT SCH (09:08)
[2020-03-13] MEDS: POLYETHYLENE GLYCOL POWDER 17 GM PACK PO SCH (09:41)
[2020-03-13] MEDS: LACTATED RINGERS 1,000 ML IV SCH (09:41)
[2020-03-13 16:36] VITALS: BP 164/100
[2020-03-13] MEDS ORDERED: INSULIN GLARGINE 100 UNIT/ML SUBCUT SCH (21:00)
== END 2020-03-13 16:30 | disposition home health service (06) | DRG 854 ==
LOC: N.ED 14:49 → N.EDINP 14:49 → N.3E 17:40
PROVIDERS: ADMIT Student in an Organized Health Care Education/Training Program; ATTEND Student in an Organized Health Care Education/Training Program

== ENCOUNTER 2020-04-11 10:53 | Inpatient (IN) ==
[2020-04-11] MEDS ORDERED: SODIUM CHLORIDE 0.9% 2,000 ML IV STA (11:17)
[2020-04-11 11:36] LABS: Basophils # 0.1 10*3/uL (0.0-0.2); Basophils % 0.3 % (0.0-0.8); Hematocrit 27.8 VOL% (42.0-52.0); Immature Granulocytes % 0.8 %; Immature Granulocytes Absolute 0.16 #; Lymphocytes # 1.2 10*3/uL (1.4-4.0); Mean Corpuscular HGB Conc 28.8 GM/DL (32-36); Mean Corpuscular Volume 95.9 FL (87-102); Mean Platelet Volume 11.5 FL (9.6-12.0); Neutrophils % 86.9 % (38.7-73.9); Platelet Count 220 T/CUMM (130-400); White Blood Count 19.9 T/CUMM (4-12)
[2020-04-11 11:40] LABS: ABG Base Excess -20.9 MMOL/L (-2.5-2.5); ABG HCO3 6.8 MMOL/L (20-26); ABG Oxygen Saturation 96.3 % (95-100); ABG PCO2 21.8 MM HG (35-48); ABG TCO2 7.5 MMOL/L (23-27); Allen Test Positive; Pt O2 Delivery Device Room Air
[2020-04-11 11:45] LABS: ABG PH 7.111 (7.35-7.45)
[2020-04-11 12:00] LABS: Albumin 1.7 G/DL (3.4-5.0); Bilirubin,Total 0.5 MG/DL (0.2-1.0); Calcium 8.2 MG/DL (8.5-10.1); Osmolality,Calculated 324.5 MOS/KG (273-304); Total Protein 6.7 G/DL (6.4-8.3)
[2020-04-11 12:15] LABS: Anisocytosis Slight; Band Neutrophils 6 % (0-10); Lymphocytes 8 % (20-55); Macrocytosis Slight; Reactive Lymphocytes Slight; Segmented Neutrophils 83 % (50-85); Total Cells Counted 100
[2020-04-11 12:16] LABS: Platelet Estimate Normal; Polychromasia Slight
[2020-04-11] MEDS ORDERED: LACTATED RINGERS 1,000 ML IV ONE (13:24)
[2020-04-11] MEDS ORDERED: ALBUTEROL 2.5 MG/3 ML NEB RESP TX PRN (13:25)
[2020-04-11] MEDS ORDERED: GLUCAGON 1 MG VIAL IM PRN (13:25)
[2020-04-11] MEDS ORDERED: DEXTROSE 50% 25 GM/50 ML VIAL IV PRN ×2 (13:25→14:33)
[2020-04-11] MEDS ORDERED: PANTOPRAZOLE 40 MG TABLET PO SCH (13:25)
[2020-04-11] MEDS ORDERED: INSULIN REGULAR 100 UNIT/ML IV ONE (14:33)
[2020-04-11] MEDS ORDERED: MAGNESIUM SULF RIDER 2 GM in PREMIX 1 EACH IV PRN (14:33)
[2020-04-11] MEDS ORDERED: MAGNESIUM SULF RIDER 4 GM in PREMIX 1 EACH IV PRN (14:33)
[2020-04-11 14:43] LABS: Bilirubin,Urine Negative (Negative); Blood, Urine Small mg/dL (Negative); Glucose,Urine (UA) 50 mg/dL (Negative); Ketones,Urine 5 mg/dL (Negative); Mucus,Urine Occasional /LPF (Occasional); Nitrite,Urine Negative (Negative); Protein,Urine 30 MG/DL; RBC,Urine 16 /HPF (0-4); Squamous Epithelial Cell,Urine Occasional /HPF (0-10); Urine Appearance CLOUDY (Clear); Urine Color Amber (Yellow); Urine Specific Gravity 1.012 (1.001-1.035); Urine Urobilinogen < 2.0 EU/DL (0.2-1.0); WBC,Urine 374 /HPF (0-6)
[2020-04-11 14:53] LABS: Barbiturates Screen,Urine Negative (Negative); Benzodiazepines Screen,Urine Negative (Negative); Cannabinoid Screen,Urine Negative (Negative); Opiate Screen,Urine Positive (Negative); Phencyclidine Screen,Urine Negative (Negative)
[2020-04-11 15:25] LABS: Calcium 7.8 MG/DL (8.5-10.1); Osmolality,Calculated 332.9 MOS/KG (273-304)
[2020-04-11] MEDS: INSULIN REGULAR DRIP 100 ML IV SCH ×2 (15:38→22:59)
[2020-04-11] MEDS: PANTOPRAZOLE 40 MG VIAL IV SCH (15:52)
[2020-04-11] MEDS: ONDANSETRON 4 MG/2 ML VIAL IV PRN (15:57)
[2020-04-11] MEDS ORDERED: INFLUENZA VIRUS VACCINE 0.5 ML SYRINGE IM ONE (16:03)
[2020-04-11] MEDS: LACTATED RINGERS 1,000 ML IV SCH ×2 (16:25→20:14)
[2020-04-11 16:54] LABS: Bilirubin,Urine Negative (Negative); Blood, Urine Moderate mg/dL (Negative); Glucose,Urine (UA) Negative (Negative); Ketones,Urine 5 mg/dL (Negative); Nitrite,Urine Negative (Negative); Protein,Urine 100 MG/DL; RBC,Urine 56 /HPF (0-4); Urine Appearance CLOUDY (Clear); Urine Color Yellow (Yellow); Urine Specific Gravity 1.012 (1.001-1.035); Urine Urobilinogen < 2.0 EU/DL (0.2-1.0); WBC,Urine 232 /HPF (0-6)
[2020-04-11 17:00] LABS: Calcium 7.8 MG/DL (8.5-10.1); Osmolality,Calculated 332.7 MOS/KG (273-304)
[2020-04-11] MEDS ORDERED: LACTATED RINGERS 500 ML IV ONE (18:02)
[2020-04-11 18:43] LABS: Calcium 7.9 MG/DL (8.5-10.1); Osmolality,Calculated 327.7 MOS/KG (273-304)
[2020-04-11] MEDS ORDERED: LEVOFLOXACIN INJ 750 MG in PREMIX 1 EACH IV SCH (20:00)
[2020-04-11 20:08] LABS: Calcium 7.9 MG/DL (8.5-10.1); Osmolality,Calculated 321.5 MOS/KG (273-304)
[2020-04-11] MEDS: POTASSIUM CHLORIDE RIDER 10 MEQ in PREMIX 1 EACH IV PRN ×4 (20:23→23:46)
[2020-04-11] MEDS ORDERED: SODIUM BICARBONATE 50 MEQ/50 ML VIAL IV ONE ×2 (20:42→20:59)
[2020-04-11] MEDS ORDERED: LACTATED RINGERS 2,000 ML IV ONE (20:51)
[2020-04-11] MEDS: ENOXAPARIN 30 MG/0.3 ML SYRINGE SUBCUT SCH (21:03)
[2020-04-11] MEDS: INSULIN GLARGINE 100 UNIT/ML SUBCUT SCH (21:03)
[2020-04-11] MEDS: DOPamine 800 MG/250 ML PREMIX IV PRN (21:24)
[2020-04-11] MEDS: MEROPENEM 500 MG in SODIUM CHLORIDE 0.9% 100 ML IV SCH (22:35)
[2020-04-11 23:21] LABS: Calcium 7.6 MG/DL (8.5-10.1); Osmolality,Calculated 326.2 MOS/KG (273-304)
[2020-04-12] MEDS: POTASSIUM CHLORIDE RIDER 10 MEQ in PREMIX 1 EACH IV PRN ×8 (00:55→10:15)
[2020-04-12] MEDS: LACTATED RINGERS 1,000 ML IV SCH ×4 (02:15→17:27)
[2020-04-12] MEDS: INSULIN REGULAR DRIP 100 ML IV SCH ×3 (03:15→16:37)
[2020-04-12 03:23] LABS: Calcium 7.8 MG/DL (8.5-10.1)
[2020-04-12 04:21] LABS: Basophils # 0.1 10*3/uL (0.0-0.2); Basophils % 0.3 % (0.0-0.8); Eosinophils % 0.1 % (0.00-10.9); Hematocrit 23.5 VOL% (42.0-52.0); Hemoglobin 7.7 GM/DL (14.0-18.0); Immature Granulocytes % 1.8 %; Immature Granulocytes Absolute 0.26 #; Lymphocytes # 0.9 10*3/uL (1.4-4.0); Lymphocytes % 5.9 % (21.2-54.2); Mean Corpuscular HGB Conc 32.8 GM/DL (32-36); Mean Corpuscular Volume 86.7 FL (87-102); Mean Platelet Volume 10.8 FL (9.6-12.0); Monocytes % 3.1 % (1.7-12.7); Neutrophils % 88.8 % (38.7-73.9); Platelet Count 208 T/CUMM (130-400); Red Blood Count 2.71 MC/CUMM (3.8-5.5); Red Cell Distribution Width 14.2 % (9.3-17.3); White Blood Count 14.4 T/CUMM (4-12)
[2020-04-12 04:42] LABS: Troponin I 0.039 NG/ML (0.00-0.045)
[2020-04-12 04:45] LABS: Band Neutrophils 6 % (0-10); Eosinophils 1 % (0-10); Hypochromasia Slight; Lymphocytes 8 % (20-55); Metamyelocytes 4 %; Microcytosis Slight; Nucleated Red Blood Cells 1 (0-5); Platelet Estimate Normal; Segmented Neutrophils 75 % (50-85); Total Cells Counted 100
[2020-04-12 08:12] LABS: Calcium 7.7 MG/DL (8.5-10.1)
[2020-04-12] MEDS ORDERED: INSULIN GLARGINE 100 UNIT/ML SUBCUT ONE (09:13)
[2020-04-12] MEDS: ONDANSETRON 4 MG/2 ML VIAL IV PRN (09:38)
[2020-04-12] MEDS: MEROPENEM 500 MG in SODIUM CHLORIDE 0.9% 100 ML IV SCH ×2 (09:43→20:19)
[2020-04-12] MEDS: PANTOPRAZOLE 40 MG VIAL IV SCH (09:43)
[2020-04-12] MEDS: IRON (CARBONYL)/VIT C/B12/FA TABLET PO SCH (09:46)
[2020-04-12] MEDS: DEXTROSE 5% LACTATED RINGERS 1,000 ML IV SCH ×2 (10:36→17:27)
[2020-04-12 12:26] LABS: Calcium 7.8 MG/DL (8.5-10.1)
[2020-04-12] MEDS ORDERED: ETOMIDATE 20 MG/10 ML VIAL IV ONE ×2 (14:55→15:04)
[2020-04-12] MEDS ORDERED: SUCCINYLCHOLINE 200 MG/10 ML VIAL ONE (14:55)
[2020-04-12] MEDS ORDERED: SUCCINYLCHOLINE 200 MG/10 ML VIAL IV ONE (15:05)
[2020-04-12] MEDS ORDERED: MIDAZOLAM 2 MG/2 ML VIAL ONE (15:17)
[2020-04-12] MEDS ORDERED: MIDAZOLAM 2 MG/2 ML VIAL IV STA (15:19)
[2020-04-12 15:26] LABS: Calcium 7.7 MG/DL (8.5-10.1); Osmolality,Calculated 295.8 MOS/KG (273-304)
[2020-04-12] MEDS: MIDAZOLAM 100 MG in SODIUM CHLORIDE 0.9% 80 ML IV PRN (15:35)
[2020-04-12] MEDS: INSULIN LISPRO 100 UNIT/ML SUBCUT SCH ×2 (16:31→20:20)
[2020-04-12 16:32] LABS: ABG Base Excess -7.2 MMOL/L (-2.5-2.5); ABG HCO3 18.5 MMOL/L (20-26); ABG Oxygen Saturation 97.9 % (95-100); ABG PCO2 41.4 MM HG (35-48); ABG PH 7.274 (7.35-7.45); ABG TCO2 18.2 MMOL/L (23-27); Pt O2 Delivery Device Ventilator
[2020-04-12] MEDS: metroNIDAZOLE INJ 500 MG in PREMIX 1 EACH IV SCH ×2 (18:11→22:57)
[2020-04-12 19:46] LABS: Calcium 7.6 MG/DL (8.5-10.1); Osmolality,Calculated 295.8 MOS/KG (273-304)
[2020-04-12] MEDS: INSULIN GLARGINE 100 UNIT/ML SUBCUT SCH (20:19)
[2020-04-12] MEDS: ENOXAPARIN 30 MG/0.3 ML SYRINGE SUBCUT SCH (20:19)
[2020-04-13] MEDS: INSULIN LISPRO 100 UNIT/ML SUBCUT SCH ×7 (00:02→23:48)
[2020-04-13] MEDS: DOPamine 800 MG/250 ML PREMIX IV PRN (02:12)
[2020-04-13] MEDS: metroNIDAZOLE INJ 500 MG in PREMIX 1 EACH IV SCH ×2 (04:23→10:34)
[2020-04-13 04:24] LABS: ABG Base Excess -5.2 MMOL/L (-2.5-2.5); ABG HCO3 20.1 MMOL/L (20-26); ABG PCO2 32.2 MM HG (35-48); ABG PH 7.382 (7.35-7.45); ABG PO2 65.6 MM HG (80-95); ABG TCO2 17.8 MMOL/L (23-27); Allen Test Positive; Pt O2 Delivery Device Ventilator
[2020-04-13 04:38] LABS: Calcium 7.6 MG/DL (8.5-10.1); Osmolality,Calculated 293.7 MOS/KG (273-304)
[2020-04-13 05:12] LABS: Basophils # 0.1 10*3/uL (0.0-0.2); Basophils % 0.9 % (0.0-0.8); Eosinophils # 0.2 10*3/uL (0.0-0.87); Eosinophils % 1.7 % (0.00-10.9); Hematocrit 24.1 VOL% (42.0-52.0); Hemoglobin 8.3 GM/DL (14.0-18.0); Immature Granulocytes % 0.6 %; Immature Granulocytes Absolute 0.08 #; Lymphocytes # 0.8 10*3/uL (1.4-4.0); Lymphocytes % 5.6 % (21.2-54.2); Mean Corpuscular HGB Conc 34.4 GM/DL (32-36); Mean Corpuscular Volume 81.1 FL (87-102); Mean Platelet Volume 11.1 FL (9.6-12.0); Monocytes % 2.8 % (1.7-12.7); NRBC # 0.02 10*3/uL; Neutrophils % 88.4 % (38.7-73.9); Platelet Count 175 T/CUMM (130-400); Red Blood Count 2.97 MC/CUMM (3.8-5.5); Red Cell Distribution Width 13.7 % (9.3-17.3); White Blood Count 13.8 T/CUMM (4-12)
[2020-04-13 05:20] LABS: Band Neutrophils 12 % (0-10); Eosinophils 1 % (0-10); Lymphocytes 11 % (20-55); Platelet Estimate Adequate; Segmented Neutrophils 74 % (50-85); Total Cells Counted 100
[2020-04-13 05:21] LABS: Hypochromasia 2+; Microcytosis Slight; Ovalocytes Slight
[2020-04-13] MEDS: DEXTROSE 5% LACTATED RINGERS 1,000 ML IV SCH ×2 (07:33→20:40)
[2020-04-13] MEDS: PANTOPRAZOLE 40 MG VIAL IV SCH (09:06)
[2020-04-13] MEDS: MEROPENEM 500 MG in SODIUM CHLORIDE 0.9% 100 ML IV SCH ×2 (09:06→20:38)
[2020-04-13] MEDS: IRON (CARBONYL)/VIT C/B12/FA TABLET PO SCH (09:08)
[2020-04-13] MEDS: NOREPINEPHRINE 8 MG in SODIUM CHLORIDE 0.9% 242 ML IV PRN ×2 (12:23→22:30)
[2020-04-13] MEDS: MENTHOL/ZINC OXIDE OINT 71 GM JAR TOP SCH ×2 (16:15→21:08)
[2020-04-13] MEDS: ENOXAPARIN 30 MG/0.3 ML SYRINGE SUBCUT SCH (20:37)
[2020-04-13] MEDS: INSULIN GLARGINE 100 UNIT/ML SUBCUT SCH (20:37)
[2020-04-14] MEDS: INSULIN LISPRO 100 UNIT/ML SUBCUT SCH ×5 (04:15→20:17)
[2020-04-14 04:58] LABS: Calcium 7.2 MG/DL (8.5-10.1); Osmolality,Calculated 306.4 MOS/KG (273-304)
[2020-04-14 05:00] LABS: Allen Test Positive; Pt O2 Delivery Device Ventilator
[2020-04-14 05:01] LABS: ABG Base Excess -7.5 MMOL/L (-2.5-2.5); ABG HCO3 16.7 MMOL/L (20-26); ABG PH 7.394 (7.35-7.45); ABG PO2 131.7 MM HG (80-95); ABG TCO2 17.6 MMOL/L (23-27)
[2020-04-14 05:06] LABS: Basophils # 0.1 10*3/uL (0.0-0.2); Basophils % 0.7 % (0.0-0.8); Eosinophils # 0.1 10*3/uL (0.0-0.87); Eosinophils % 1.1 % (0.00-10.9); Immature Granulocytes % 20.3 %; Immature Granulocytes Absolute 1.83 #; Lymphocytes # 0.7 10*3/uL (1.4-4.0); Lymphocytes % 7.8 % (21.2-54.2); Mean Corpuscular HGB Conc 34.9 GM/DL (32-36); Mean Corpuscular Volume 80.5 FL (87-102); Mean Platelet Volume 10.7 FL (9.6-12.0); Monocytes % 1.2 % (1.7-12.7); Neutrophils % 68.9 % (38.7-73.9)
[2020-04-14 05:10] LABS: Hematocrit 16.9 VOL% (42.0-52.0); Hemoglobin 5.9 GM/DL (14.0-18.0); Platelet Count 68 T/CUMM (130-400)
[2020-04-14] MEDS ORDERED: FUROSEMIDE 20 MG/2 ML VIAL IV PRN (05:15)
[2020-04-14] MEDS ORDERED: SODIUM CHLORIDE 0.9% 1,000 ML IV PRN ×2 (05:16→15:33)
[2020-04-14 05:23] LABS: Band Neutrophils 13 % (0-10); Eosinophils 1 % (0-10); Lymphocytes 5 % (20-55); Nucleated Red Blood Cells 1 (0-5); Platelet Estimate Decreased; Segmented Neutrophils 80 % (50-85); Total Cells Counted 100
[2020-04-14 05:24] LABS: Hypochromasia 2+; Microcytosis 1+
[2020-04-14 05:50] LABS: Total Protein 4.5 G/DL (6.4-8.3); Uric Acid 7.5 MG/DL (3.5-7.2)
[2020-04-14] MEDS: DEXTROSE 5% LACTATED RINGERS 1,000 ML IV SCH (07:16)
[2020-04-14] MEDS: IRON (CARBONYL)/VIT C/B12/FA TABLET PO SCH (08:44)
[2020-04-14] MEDS: PANTOPRAZOLE 40 MG VIAL IV SCH (08:44)
[2020-04-14] MEDS: MEROPENEM 500 MG in SODIUM CHLORIDE 0.9% 100 ML IV SCH ×2 (08:44→20:18)
[2020-04-14] MEDS: MENTHOL/ZINC OXIDE OINT 71 GM JAR TOP SCH ×2 (08:45→20:17)
[2020-04-14 09:11] LABS: Immunoglobulin A (Chem) 335 MG/DL (70-400); Immunoglobulin G (Chem) 709 MG/DL (700-1600); Immunoglobulin M (Chem) 26 MG/DL (40-230); Total Protein (Chem) 4.5 G/DL (6.4-8.3)
[2020-04-14 12:16] LABS: Albumin (SPE) 1.7 G/DL (3.2-5.3); Alpha 1 (SPE) 0.4 G/DL (0.1-0.4); Alpha 1 (SPE) Rel % 8.1 %; Alpha 2 (SPE) 0.7 G/DL (0.4-1.0); Alpha 2 (SPE) Rel % 16.2 %; Beta (SPE) 0.8 G/DL (0.5-1.1); Beta (SPE) Rel % 17.4 %; Gamma (SPE) 0.9 G/DL (0.7-1.7); Gamma (SPE) Rel % 20.3 %
[2020-04-14] MEDS: LACTATED RINGERS 1,000 ML IV SCH (13:12)
[2020-04-14 13:37] LABS: Immuno Free Light Chain Kappa 12.31 MG/DL (0.33-1.94); Immuno Free Light Chain Lambda 8.71 MG/DL (0.57-2.63); Immuno Free Light Chain Ratio 1.41 MG/DL (0.26-1.65)
[2020-04-14 13:41] LABS: Hematocrit 19.3 VOL% (42.0-52.0); Hemoglobin 6.7 GM/DL (14.0-18.0)
[2020-04-14] MEDS: SODIUM HYPOCHLORITE 0.25% IRRIG 473 ML BOTTLE TOP SCH (16:48)
[2020-04-14] MEDS ORDERED: INSULIN GLARGINE 100 UNIT/ML SUBCUT SCH ×2 (21:00)
[2020-04-14 22:56] LABS: Hematocrit 21.7 VOL% (42.0-52.0); Hemoglobin 7.7 GM/DL (14.0-18.0)
[2020-04-15] MEDS: INSULIN LISPRO 100 UNIT/ML SUBCUT SCH ×6 (02:21→20:50)
[2020-04-15] MEDS: LACTATED RINGERS 1,000 ML IV SCH ×3 (02:22→16:04)
[2020-04-15 04:20] LABS: ABG Base Excess -4.2 MMOL/L (-2.5-2.5); ABG HCO3 19.2 MMOL/L (20-26); ABG Oxygen Saturation 97.9 % (95-100); ABG PCO2 29.2 MM HG (35-48); ABG PH 7.436 (7.35-7.45); ABG PO2 119.3 MM HG (80-95); ABG TCO2 20.1 MMOL/L (23-27); Allen Test Positive; Pt O2 Delivery Device Ventilator
[2020-04-15 05:05] LABS: Basophils # 0.1 10*3/uL (0.0-0.2); Basophils % 0.8 % (0.0-0.8); Eosinophils # 0.3 10*3/uL (0.0-0.87); Eosinophils % 3.6 % (0.00-10.9); Hemoglobin 7.1 GM/DL (14.0-18.0); Immature Granulocytes Absolute 0.87 #; Lymphocytes # 1.2 10*3/uL (1.4-4.0); Lymphocytes % 13.3 % (21.2-54.2); Mean Corpuscular HGB Conc 35.5 GM/DL (32-36); Mean Platelet Volume 11.3 FL (9.6-12.0); Monocytes % 2.3 % (1.7-12.7); Red Blood Count 2.47 MC/CUMM (3.8-5.5); Red Cell Distribution Width 14.2 % (9.3-17.3); White Blood Count 8.7 T/CUMM (4-12)
[2020-04-15 05:10] LABS: Platelet Count 45 T/CUMM (130-400)
[2020-04-15 05:20] LABS: INR 1.2; PT Patient Result 12.3 SECS (9.8-11.9)
[2020-04-15 05:27] LABS: Calcium 7.6 MG/DL (8.5-10.1); Osmolality,Calculated 307.7 MOS/KG (273-304)
[2020-04-15 05:30] LABS: Band Neutrophils 4 % (0-10); Eosinophils 6 % (0-10); Hypochromasia 1+; Lymphocytes 15 % (20-55); Ovalocytes Slight; Platelet Estimate Decreased; Segmented Neutrophils 73 % (50-85); Total Cells Counted 100
[2020-04-15 05:31] LABS: Microcytosis 1+
[2020-04-15] MEDS: POTASSIUM CHLORIDE RIDER 10 MEQ in PREMIX 1 EACH IV PRN ×4 (05:38→11:10)
[2020-04-15 05:45] LABS: Partial Thromboplastin Time 46.4 SECS (23.9-33.8)
[2020-04-15] MEDS ORDERED: SODIUM CHLORIDE 0.9% 1,000 ML IV PRN ×2 (07:31→12:41)
[2020-04-15] MEDS: MEROPENEM 500 MG in SODIUM CHLORIDE 0.9% 100 ML IV SCH ×2 (09:04→20:51)
[2020-04-15] MEDS: IRON (CARBONYL)/VIT C/B12/FA TABLET PO SCH (09:07)
[2020-04-15] MEDS: SODIUM HYPOCHLORITE 0.25% IRRIG 473 ML BOTTLE TOP SCH (09:11)
[2020-04-15] MEDS: MENTHOL/ZINC OXIDE OINT 71 GM JAR TOP SCH ×2 (09:11→20:51)
[2020-04-15] MEDS: FAMOTIDINE 20 MG/2 ML VIAL IV SCH (09:32)
[2020-04-15 14:48] LABS: Total Volume,Urine 1275 ML (400-2000)
[2020-04-15 14:57] LABS: Total Protein 24 Hr Ur Result 879 MG/24HR (0-149.1)
[2020-04-15 15:00] LABS: Creatinine Clearance Urine 12.21 ML/MIN (70-135)
[2020-04-15] MEDS: MIDAZOLAM 100 MG in SODIUM CHLORIDE 0.9% 80 ML IV PRN (15:13)
[2020-04-15] MEDS: ENOXAPARIN 30 MG/0.3 ML SYRINGE SUBCUT SCH (16:04)
[2020-04-15 19:49] LABS: Hematocrit 22.7 VOL% (42.0-52.0); Platelet Count 85 T/CUMM (130-400)
[2020-04-15 20:01] VITALS: BP 122/70
[2020-04-15] MEDS ORDERED: INSULIN GLARGINE 100 UNIT/ML SUBCUT SCH (21:00)
[2020-04-16] MEDS: INSULIN LISPRO 100 UNIT/ML SUBCUT SCH ×6 (00:43→22:05)
[2020-04-16] MEDS: LACTATED RINGERS 1,000 ML IV SCH ×5 (01:11→23:44)
[2020-04-16 03:19] LABS: Allen Test Positive; Pt O2 Delivery Device Ventilator
[2020-04-16 03:20] LABS: ABG Base Excess -2.5 MMOL/L (-2.5-2.5); ABG HCO3 22.3 MMOL/L (20-26); ABG Oxygen Saturation 99.5 % (95-100); ABG PCO2 29.5 MM HG (35-48); ABG PH 7.455 (7.35-7.45); ABG TCO2 19.4 MMOL/L (23-27)
[2020-04-16 05:08] LABS: Calcium 8.3 MG/DL (8.5-10.1); Osmolality,Calculated 312.3 MOS/KG (273-304)
[2020-04-16] MEDS: POTASSIUM CHLORIDE RIDER 10 MEQ in PREMIX 1 EACH IV PRN ×2 (05:36→06:58)
[2020-04-16] MEDS: MIDAZOLAM 100 MG in SODIUM CHLORIDE 0.9% 80 ML IV PRN (06:55)
[2020-04-16 08:35] LABS: Bilirubin,Urine Negative (Negative); Blood, Urine Moderate mg/dL (Negative); Glucose,Urine (UA) Negative (Negative); Ketones,Urine Negative (Negative); Mucus,Urine Occasional /LPF (Occasional); Nitrite,Urine Negative (Negative); Protein,Urine 30 MG/DL; RBC,Urine 82 /HPF (0-4); Urine Appearance CLOUDY (Clear); Urine Color Yellow (Yellow); Urine Specific Gravity 1.012 (1.001-1.035); Urine Urobilinogen < 2.0 EU/DL (0.2-1.0); WBC,Urine 186 /HPF (0-6)
[2020-04-16 09:21] LABS: Basophils % 0.6 % (0.0-0.8); Eosinophils # 0.3 10*3/uL (0.0-0.87); Eosinophils % 3.6 % (0.00-10.9); Hematocrit 22.4 VOL% (42.0-52.0); Hemoglobin 7.5 GM/DL (14.0-18.0); Immature Granulocytes % 2.2 %; Immature Granulocytes Absolute 0.16 #; Lymphocytes # 1.1 10*3/uL (1.4-4.0); Lymphocytes % 14.7 % (21.2-54.2); Mean Corpuscular HGB Conc 33.5 GM/DL (32-36); Mean Corpuscular Volume 83.9 FL (87-102); Mean Platelet Volume 11.9 FL (9.6-12.0); Monocytes % 6.5 % (1.7-12.7); Neutrophils % 72.4 % (38.7-73.9); Red Blood Count 2.67 MC/CUMM (3.8-5.5); Red Cell Distribution Width 15.3 % (9.3-17.3); White Blood Count 7.3 T/CUMM (4-12)
[2020-04-16 09:22] LABS: Platelet Count 73 T/CUMM (130-400)
[2020-04-16 09:40] LABS: Band Neutrophils 2 % (0-10); Eosinophils 4 % (0-10); Lymphocytes 11 % (20-55); Platelet Estimate Decreased; Segmented Neutrophils 78 % (50-85); Total Cells Counted 100
[2020-04-16 09:41] LABS: Hypochromasia 1+; Microcytosis 1+
[2020-04-16] MEDS: SODIUM HYPOCHLORITE 0.25% IRRIG 473 ML BOTTLE TOP SCH (10:00)
[2020-04-16] MEDS ORDERED: MIDAZOLAM 2 MG/2 ML VIAL ONE (10:20)
[2020-04-16] MEDS ORDERED: ROCURONIUM 100 MG/10 ML VIAL IV ONE (10:20)
[2020-04-16] MEDS ORDERED: SEVOFLURANE 1 UNIT/15 MINUTE INH ONE (10:20)
[2020-04-16] MEDS: MENTHOL/ZINC OXIDE OINT 71 GM JAR TOP SCH ×2 (10:30→22:05)
[2020-04-16] MEDS: IRON (CARBONYL)/VIT C/B12/FA TABLET PO SCH (10:58)
[2020-04-16] MEDS: FAMOTIDINE 20 MG/2 ML VIAL IV SCH (10:58)
[2020-04-16] MEDS: MEROPENEM 500 MG in SODIUM CHLORIDE 0.9% 100 ML IV SCH ×2 (10:59→22:00)
[2020-04-16] MEDS ORDERED: NOREPINEPHRINE 4 MG/4 ML VIAL IV ONE (17:09)
[2020-04-16] MEDS ORDERED: NOREPINEPHRINE 8 MG in SODIUM CHLORIDE 0.9% 242 ML IV PRN (17:16)
[2020-04-16] MEDS ORDERED: DEXMEDETOMIDINE 200 MCG in SODIUM CHLORIDE 0.9% 48 ML IV PRN (19:17)
[2020-04-16] MEDS ORDERED: POTASSIUM CHLORIDE 20 MEQ/15 ML UDCUP PER TUBE PRN (19:17)
[2020-04-17] MEDS: INSULIN LISPRO 100 UNIT/ML SUBCUT SCH ×4 (00:34→11:44)
[2020-04-17 03:36] LABS: ABG Base Excess -3.4 MMOL/L (-2.5-2.5); ABG HCO3 21.6 MMOL/L (20-26); ABG Oxygen Saturation 99.5 % (95-100); ABG PCO2 29.9 MM HG (35-48); ABG PH 7.438 (7.35-7.45); Allen Test Positive; Pt O2 Delivery Device Ventilator
[2020-04-17] MEDS ORDERED: ACETAMINOPHEN 325 MG TABLET PO PRN (05:08)
[2020-04-17 05:09] LABS: Basophils % 0.4 % (0.0-0.8); Eosinophils # 0.3 10*3/uL (0.0-0.87); Eosinophils % 3.3 % (0.00-10.9); Hematocrit 22.8 VOL% (42.0-52.0); Hemoglobin 7.7 GM/DL (14.0-18.0); Immature Granulocytes % 1.9 %; Immature Granulocytes Absolute 0.19 #; Lymphocytes # 1.8 10*3/uL (1.4-4.0); Lymphocytes % 17.8 % (21.2-54.2); Mean Corpuscular HGB Conc 33.8 GM/DL (32-36); Mean Corpuscular Volume 85.7 FL (87-102); Mean Platelet Volume 12.5 FL (9.6-12.0); Monocytes % 9.7 % (1.7-12.7); Neutrophils % 66.9 % (38.7-73.9); Platelet Count 88 T/CUMM (130-400); Red Blood Count 2.66 MC/CUMM (3.8-5.5); Red Cell Distribution Width 15.6 % (9.3-17.3); White Blood Count 9.9 T/CUMM (4-12)
[2020-04-17 05:21] LABS: Calcium 8.3 MG/DL (8.5-10.1); Osmolality,Calculated 320.1 MOS/KG (273-304)
[2020-04-17 05:42] LABS: Band Neutrophils 4 % (0-10); Eosinophils 5 % (0-10); Lymphocytes 15 % (20-55); Platelet Estimate Decreased; Segmented Neutrophils 72 % (50-85); Total Cells Counted 100
[2020-04-17 05:43] LABS: Polychromasia Slight; Stomatocytes Slight; Target Cells Few
[2020-04-17 05:44] LABS: Hypochromasia Slight; Microcytosis Slight
[2020-04-17] MEDS: SODIUM HYPOCHLORITE 0.25% IRRIG 473 ML BOTTLE TOP SCH (07:02)
[2020-04-17] MEDS: LACTATED RINGERS 1,000 ML IV SCH (07:49)
[2020-04-17] MEDS: FAMOTIDINE 20 MG/2 ML VIAL IV SCH (09:35)
[2020-04-17] MEDS: MEROPENEM 500 MG in SODIUM CHLORIDE 0.9% 100 ML IV SCH (09:45)
[2020-04-17] MEDS: IRON (CARBONYL)/VIT C/B12/FA TABLET PO SCH (09:45)
[2020-04-17] MEDS: MENTHOL/ZINC OXIDE OINT 71 GM JAR TOP SCH (09:45)
== END 2020-04-17 14:15 | DRG 853 ==
LOC: EDUNIT# → EDBD → N.ED 10:53 → SUATTDRO 13:19 → N.EDINP 13:19 → N.CC 14:09
PROVIDERS: ADMIT Internal Medicine; ATTEND Family Medicine